=== PATIENT | female | born 2000 | race Caucasian/White ===

== ENCOUNTER → 2018-11-22 | Outpatient (CLI) | payer MEDICAID | LOC: LAB FS 15:20 | PROVIDERS: ATTEND Obstetrics & Gynecology | DX: Z34.01 Encounter for supervision of normal first pregnancy, first trimester (principal) ==

== ENCOUNTER 2019-01-02 09:39 | Emergency (ER) | payer MEDICAID ==
[~2019-01-02] VITALS: Ht 162.6 cm; Wt 83.0 kg
--- OUTSIDE RECORDS SUMMARY | 2019-01-02 10:24 | XMS REPORT ---
Author Author Migration, Doctor Organization [facility] Address Unknown Phone Unavailable Care Team Providers Care Lead Miner Blasting Name Role Phone Migration, Doctor Unavailable Unavailable PROBLEMS Type Condition ICD9-CM Code TFS43-QL Code Onset Dates Condition Status SNOMED Code Problem Bipolar disorder, mixed F31.60 Active 96245798 Problem Generalized anxiety disorder F41.1 Active 39966464 Problem Abnormal menses N92.6 Active 834004431 Problem Hypothyroidism, unspecified type E03.9 Active 86252509 ALLERGIES Substance Reaction Event Type Date Status Penicillins Unknown Non Drug Allergy Sep, Active Sulfa (sulfonamide Antibiotics) Unknown Non Drug Allergy Sep, Active ENCOUNTERS Encounter Location Date Diagnosis [address] [address] Nov, [address] [address] October, Encounter for supervision of other normal , first trimester Z34.81 and Acute vaginitis N76.[address] [address] October, [address] [address] October, Encounter for supervision of normal first in first trimester Z34.[address] [address] Sep, [address] [address] Sep, [facility] [place] [address] [facility] [id number] [address] Sep, [facility] [place] [address] [facility] [id number], [place] [address] Sep, [address] [address] Sep, [facility] [place] [id number] [place] [address] 08 Sep, 2018 Encounter for supervision of other normal , first trimester Z34.81 [place] [id number] [place] [address] 28 Aug, 2018 Bipolar disorder, mixed F31.60 and Generalized anxiety disorder F41.1 [facility] [id number] [place] [id number] 14 Jul, 2018 Caries K02.9 ; Oral health maintenance status requiring routine preventive dental care K08.9 ; Dental examination Z01.20 and Periodontitis K05.30 [place] [id number] [place] [address] 14 Jul, 2018 Hypothyroidism, unspecified type E03.9 [place] [id number] [place] [address] 06 Jul, 2018 Bipolar disorder, mixed F31.60 and Generalized anxiety disorder F41.1 [place] [id number] [place] [address] 06 Jul, 2018 Bipolar disorder, mixed F31.60 ; Generalized anxiety disorder F41.1 and Other detention (current) drug therapy Z79.899 [place] [address] [place] [address] 06 Jul, 2018 Hypothyroidism, unspecified type E03.9 [place] [id number] [place] [address] Jul, Hypothyroidism, unspecified type E03.9 [place] [id number] [place] [address] Jun, Hypothyroidism, unspecified type E03.9 [place] [id number] [place] [address] Jun, Bipolar disorder, mixed F31.60 and Generalized anxiety disorder F41.1 [place] [id number] [place] [address] Jun, Bipolar disorder, mixed F31.60 and Generalized anxiety disorder F41.1 [facility] [place] [id number] [place] [address] May, Bipolar disorder, mixed F31.60 and Generalized anxiety disorder F41.1 [facility] [place] [id number] [place] [address] May, Bipolar disorder, mixed F31.60 and Generalized anxiety disorder F41.1 [facility] [place] [id number] [place] [address] Apr, [facility] [place] [address] [address] Mar, Hepatitis C antibody test positive R76.8 [place] [id number] [place] [address] Mar, Hepatitis C antibody test positive R76.8 [facility] [place] [id number] [place] [address] Mar, Positive hepatitis C antibody test R76.8 [facility] [place] [id number] [place] [address] Mar, Positive hepatitis C antibody test R76.8 [facility] [place] [id number] [place] [address] Feb, [facility] [place] [id number] [place] [address] Feb, [facility] [place] [id number] [place] [address] Feb, [facility] [place] [id number] [place] [address] Feb, Screening for STD (sexually transmitted disease) Z11.3 and Well woman exam with routine gynecological exam Z01.419 [place] [id number] [place] [address] Nov, [place] [address] [address] Nov, Abnormal results of thyroid function studies R94.6 [facility] [place] [id number] [place] [address] October, Abnormal menses N92.6 and Hypothyroidism, unspecified type E03.9 [facility] [place] [address] [address] 14 Sep, 2014 [facility] [place] [id number] [place] [address] Sep, [facility] [place] [id number] [place] [address], [place] [address] Sep, [facility] [place] [address] [id number] [address] Sep, [facility] [place] [id number] [place] [address] Jun, [facility] [place] [address], [place] [address] Jun, [facility] [place] [address], [place] [address] Jun, [facility] [place] [address] [address] Jun, [facility] [place] [address], [place] [address] May, [facility] [place] [address], [place] [address] 18 May, 2013 [facility] [place] [id number] [address] May, [facility] [place] [address], [place] [address] May, [facility] [place] [id number], [place] [address] May, [facility] [place] [id number], [place] [address] May, [facility] [place] [address] [facility] [id number], [place] [address] Apr, [facility] [place] [address] [facility] [id number], [place] [address] Apr, [facility] [place] [address] [facility] [id number], [place] [address] Apr, [facility] [place] [address] [facility] [id number], [place] [address] Apr, [facility] [place] [address] [facility] [id number], [place] [address] Apr, [facility] [place] [address], [place] [address] Apr, [facility] [place] [address], [place] [address] Apr, [facility] [place] [id number], [place] [address] Apr, IMMUNIZATIONS No Known Immunizations SOCIAL HISTORY Never Assessed REASON FOR VISIT [facility] PLAN OF CARE VITAL SIGNS MEDICATIONS Medication Instructions Dosage Frequency Start Date End Date Duration Status ZyrTEC 10 mg take 1 tablet (10 mg) by oral route once daily May, Active amitriptyline 25 mg 1 tablet by Oral route 1 time per day May, Active Keflex 500 mg take 1 capsule (500 mg) by oral route every 12 hours for 7 days Apr, Active Depo-Provera 150 mg/mL inject 150 mg by intramuscular route every 3 months Jun, Active RESULTS No Results PROCEDURES No Known procedures INSTRUCTIONS MEDICATIONS ADMINISTERED No Known Medications MEDICAL (GENERAL) HISTORY Type Description Date Medical History hypothyroidism Surgical History cholecystectomy Surgical History EGD x2 Surgical History colonoscopy
--- OUTSIDE RECORDS SUMMARY | 2019-01-02 10:24 | XMS REPORT ---
Author Author Migration, Doctor Organization [facility] Address Unknown Phone Unavailable Care Team Providers Care Electric Refrigerator Preparer Name Role Phone Migration, Doctor Unavailable Unavailable PROBLEMS Type Condition ICD9-CM Code HTT81-CG Code Onset Dates Condition Status SNOMED Code Problem Bipolar disorder, mixed F31.60 Active 83487810 Problem Generalized anxiety disorder F41.1 Active 81956495 Problem Abnormal menses N92.6 Active 124069137 Problem Hypothyroidism, unspecified type E03.9 Active 61850968 ALLERGIES No Information ENCOUNTERS Encounter Location Date Diagnosis [facility] [id number], [place] [address] October, [facility] [address] [place] [address] October, [facility] [id number] [place] [address] October, [address] [address] Sep, [address] [address] Sep, [facility] [id number], [place] [address] Sep, [facility] [address] [place] [address] Sep, [address] [address] Sep, [facility] [id number] [place] [address] Sep, Encounter for supervision of other normal , first trimester Z34.81 [facility] [id number], [place] [address] Aug, Bipolar disorder, mixed F31.60 and Generalized anxiety disorder F41.1 [facility] [id number] [id number] 14 Jul, 2018 Caries K02.9 ; Oral health maintenance status requiring routine preventive dental care K08.9 ; Dental examination Z01.20 and Periodontitis K05.30 [place] [address] [place] [address] 14 Jul, 2018 Hypothyroidism, unspecified type E03.9 [place] [id number] [place] [address] 06 Jul, 2018 Bipolar disorder, mixed F31.60 and Generalized anxiety disorder F41.1 [place] [id number] [place] [address] 06 Jul, 2018 Bipolar disorder, mixed F31.60 ; Generalized anxiety disorder F41.1 and Other shelter (current) drug therapy Z79.899 [place] [id number] [place] [address] 06 Jul, 2018 Hypothyroidism, unspecified type E03.9 [place] [id number] [place] [address] Jul, Hypothyroidism, unspecified type E03.9 [place] [address] [place] [address] Jun, Hypothyroidism, unspecified type E03.9 [place] [address] [place] [address] Jun, Bipolar disorder, mixed F31.60 and Generalized anxiety disorder F41.1 [place] [address] [place] [address] Jun, Bipolar disorder, mixed F31.60 and Generalized anxiety disorder F41.1 [place] [address] [place] [address] May, Bipolar disorder, mixed F31.60 and Generalized anxiety disorder F41.1 [place] [id number] [place] [address] May, Bipolar disorder, mixed F31.60 and Generalized anxiety disorder F41.1 [facility] [id number] [place] [address] Apr, [facility] [id number] [place] [address] Mar, Hepatitis C antibody test positive R76.8 [place] [id number] [place] [address] Mar, Hepatitis C antibody test positive R76.8 [place] [id number] [place] [address] Mar, Positive hepatitis C antibody test R76.8 [place] [id number] [place] [address] Mar, Positive hepatitis C antibody test R76.8 [place] [address] [place] [address] Feb, [place] [id number] [place] [address] Feb, [place] [id number] [place] [address] Feb, [place] [address] [place] [address] Feb, Screening for STD (sexually transmitted disease) Z11.3 and Well woman exam with routine gynecological exam Z01.419 [place] [address] [place] [address] Nov, [place] [address] [place] [address] Nov, Abnormal results of thyroid function studies R94.6 [place] [id number] [place] [address] October, Abnormal menses N92.6 and Hypothyroidism, unspecified type E03.9 [facility] [address] [facility] [id number] [place] [address] 14 Sep, 2014 [facility] [address] [facility] [id number], [place] [address] 13 Sep, 2014 [facility] [address] [place] [id number] [place] [address] Sep, [facility] [address] [facility] [id number], [place] [address] Sep, [facility] [address] [facility] [id number] [place] [address] Jun, [facility] [address] [facility] [id number], [place] [address] Jun, [facility] [address], [place] [address] Jun, [facility] [address] [facility] [id number], [place] [address] Jun, [facility] [id number], [place] [address] May, [facility] [address] [facility] [id number], [place] [address] 18 May, 2013 [facility] [address], [place] [address] 17 May, 2013 [facility] [address] [facility] [id number], [place] [address] 17 May, 2013 [facility] [address] [facility] [id number], [place] [address] May, [facility] [address] [facility] [id number], [place] [address] May, [facility] [id number], [place] [address] Apr, [facility] [address] [facility] [id number], [place] [address] Apr, [facility] [address], [place] [address] Apr, [facility] [address], [place] [address] Apr, [facility] [id number], [place] [address] Apr, [facility] [id number], [place] [address] Apr, [facility] [id number], [place] [address] Apr, [facility] [id number], [place] [address] Apr, IMMUNIZATIONS No Known Immunizations SOCIAL HISTORY Never Assessed REASON FOR VISIT [facility] PLAN OF CARE VITAL SIGNS MEDICATIONS Unknown Medications RESULTS No Results PROCEDURES No Known procedures INSTRUCTIONS MEDICATIONS ADMINISTERED No Known Medications MEDICAL (GENERAL) HISTORY Type Description Date Medical History hypothyroidism Surgical History cholecystectomy Surgical History EGD x2 Surgical History colonoscopy
--- OUTSIDE RECORDS SUMMARY | 2019-01-02 10:24 | XMS REPORT ---
Author Author Migration, Doctor Organization [facility] Address Unknown Phone Unavailable Care Team Providers Care Laborer Heading Name Role Phone Migration, Doctor Unavailable Unavailable PROBLEMS Type Condition ICD9-CM Code [id number] Code Onset Dates Condition Status SNOMED Code Problem Bipolar disorder, mixed F31.60 Active 64596774 Problem Generalized anxiety disorder F41.1 Active 75039758 Problem Abnormal menses N92.6 Active 682766294 Problem Hypothyroidism, unspecified type E03.9 Active 76744164 ALLERGIES No Information ENCOUNTERS Encounter Location Date Diagnosis [address] [address] Nov, [facility] [id number], [place] [address] October, [address] [address] October, [address] [address] October, [address] [address] October, Encounter for supervision of normal first in first trimester Z34.[address] [address] Sep, [address] [address] Sep, [facility] [address] [facility] [id number], [place] [address] Sep, [facility] [address] [facility] [id number] [address] Sep, [address] [address] Sep, [facility] [address] [facility] [id number], [place] [address] Sep, Encounter for supervision of other normal , first trimester Z34.81 [facility] [address] [place] [address] Aug, Bipolar disorder, mixed F31.60 and Generalized anxiety disorder F41.[address] [facility] [address] [id number] 14 Jul, 2018 Caries K02.9 ; Oral health maintenance status requiring routine preventive dental care K08.9 ; Dental examination Z01.20 and Periodontitis K05.30 [facility] [id number] [place] [address] 14 Jul, 2018 Hypothyroidism, unspecified type E03.9 [id number] [place] [address] 06 Jul, 2018 Bipolar disorder, mixed F31.60 and Generalized anxiety disorder F41.1 [facility] [id number] [place] [address] 06 Jul, 2018 Bipolar disorder, mixed F31.60 ; Generalized anxiety disorder F41.1 and Other termite inspector (current) drug therapy Z79.899 [facility] [id number] [place] [address] 06 Jul, 2018 Hypothyroidism, unspecified type E03.9 [facility] [id number] [place] [address] 05 Jul, 2018 Hypothyroidism, unspecified type E03.9 [facility] [id number] [place] [address] Jun, Hypothyroidism, unspecified type E03.9 [facility] [id number] [place] [address] Jun, Bipolar disorder, mixed F31.60 and Generalized anxiety disorder F41.1 [facility] [id number] [place] [address] Jun, Bipolar disorder, mixed F31.60 and Generalized anxiety disorder F41.1 [facility] [address] [place] [address] May, Bipolar disorder, mixed F31.60 and Generalized anxiety disorder F41.1 [facility] [id number] [place] [address] May, Bipolar disorder, mixed F31.60 and Generalized anxiety disorder F41.1 [facility] [id number] [place] [address] Apr, [facility] [id number] [place] [address] Mar, Hepatitis C antibody test positive R76.8 [facility] [id number] [place] [address] Mar, Hepatitis C antibody test positive R76.8 [facility] [id number] [place] [address] Mar, Positive hepatitis C antibody test R76.8 [facility] [id number] [place] [address] Mar, Positive hepatitis C antibody test R76.8 [facility] [address] [place] [address] Feb, [facility] [address], [place] [address] Feb, [facility] [id number] [place] [address] Feb, [facility] [address] [place] [address] Feb, Screening for STD (sexually transmitted disease) Z11.3 and Well woman exam with routine gynecological exam Z01.419 [facility] [address], [place] [address] Nov, [facility] [id number] [place] [address] Nov, Abnormal results of thyroid function studies R94.6 [facility] [address], [place] [address] October, Abnormal menses N92.6 and Hypothyroidism, unspecified type E03.9 [facility] [address], [place] [address] 14 Sep, 2014 [facility] [id number] [place] [address] Sep, [facility] [address], [place] [address] Sep, [facility] [id number] [place] [address] Sep, [facility] [id number] [place] [address] Jun, [facility] [id number] [place] [address] Jun, [facility] [address], [place] [address] Jun, [facility] [address], [place] [address] Jun, [facility] [address], [place] [address] May, [facility] [address], [place] [address] 18 May, 2013 [facility] [address], [place] [address] May, [facility] [id number], [place] [address] May, [facility] [address], [place] [address] May, [facility] [id number], [place] [address] May, [facility] [address], [place] [address] Apr, [facility] [address], [place] [address] Apr, [facility] [address], [place] [address] Apr, [facility] [address] [place] [address] Apr, [facility] [address] [place] [address] Apr, [facility] [address], [place] [address] Apr, [facility] [address], [place] [address] Apr, [facility] [address], [place] [address] Apr, IMMUNIZATIONS No Known Immunizations SOCIAL HISTORY Never Assessed REASON FOR VISIT EMR-[facility] PLAN OF CARE VITAL SIGNS MEDICATIONS Unknown Medications RESULTS No Results PROCEDURES No Known procedures INSTRUCTIONS MEDICATIONS ADMINISTERED No Known Medications MEDICAL (GENERAL) HISTORY Type Description Date Medical History hypothyroidism Surgical History cholecystectomy Surgical History EGD x2 Surgical History colonoscopy
--- OUTSIDE RECORDS SUMMARY | 2019-01-02 10:24 | XMS REPORT ---
Author Author JAVIER ECHOLS Organization [facility] Address [address] [place] [address] Care Team Providers Care Narcotics And/Or Vice Detective Name Role Phone ECHOLS, JAVIER Unavailable PROBLEMS Type Condition ICD9-CM Code WID95-WY Code Onset Dates Condition Status SNOMED Code Problem Generalized anxiety disorder F41.1 Active 73768610 Problem Bipolar disorder, mixed F31.60 Active 81916584 Problem Hypothyroidism, unspecified type E03.9 Active 97746563 Problem Abnormal menses N92.6 Active 981872461 ALLERGIES No Information ENCOUNTERS Encounter Location Date Diagnosis [facility] [id number] [place] [address] Jun, [facility] [id number] [place] [address] May, [facility] [id number] [place] [address] May, Bipolar disorder, mixed F31.60 and Generalized anxiety disorder F41.1 [facility] [id number] [place] [address] Apr, [facility] [id number] [place] [address] Mar, Hepatitis C antibody test positive R76.8 [facility] [id number] [place] [address] Mar, Hepatitis C antibody test positive R76.8 [facility] [id number] [place] [address] Mar, Positive hepatitis C antibody test R76.8 [facility] [id number] [place] [address] Mar, Positive hepatitis C antibody test R76.8 [facility] [id number] [place] [address] Feb, [facility] [id number] [place] [address] Feb, [facility] [id number] [place] [address] Feb, [facility] [id number] [place] [address] Feb, Screening for STD (sexually transmitted disease) Z11.3 and Well woman exam with routine gynecological exam Z01.419 [facility] [id number] [place] [address] Nov, [facility] [id number] [place] [address] Nov, Abnormal results of thyroid function studies R94.6 [facility] [id number] [place] [address] October, Abnormal menses N92.6 and Hypothyroidism, unspecified type E03.9 [facility] [id number] [place] [address] Sep, [facility] [id number] [place] [address] Sep, [facility] [id number] [place] [address] Sep, [facility] [id number] [place] [address] Sep, [facility] [id number] [place] [address] Jun, [facility] [id number] [place] [address] Jun, [facility] [id number] [place] [address] Jun, [facility] [address] [facility] [id number], [place] [address] Jun, [facility] [address] [facility] [id number], [place] [address] May, [facility] [address] [facility] [id number], [place] [address] May, [facility] [address] [facility] [id number], [place] [address] May, [facility] [address] [facility] [id number], [place] [address] May, [facility] [address] [facility] [id number], [place] [address] May, [facility] [id number], [place] [address] May, [facility] [address] [facility] [id number], [place] [address] Apr, [facility] [id number], [place] [address] Apr, [facility] [id number], [place] [address] Apr, [facility] [id number], [place] [address] Apr, [facility] [address] [facility] [id number], [place] [address] Apr, [facility] [address] [facility] [id number], [place] [address] Apr, [facility] [address] [facility] [id number], [place] [address] Apr, [facility] [address] [id number], [place] [address] Apr, IMMUNIZATIONS No Known Immunizations SOCIAL HISTORY Never Assessed REASON FOR VISIT BH Intake PLAN OF CARE Activity Details Follow Up 3 Weeks Reason: VITAL SIGNS MEDICATIONS Medication Instructions Dosage Frequency Start Date End Date Duration Status Flagyl 500 mg Orally Once a day 4 tablet 24h Feb, 1 dose Unknown Seroquel 25 MG Orally Once a day 1 tablet 24h 30 day(s) Not-Taking Abilify 10 MG Orally Once a day 1 tablet 24h 30 day(s) Not-Taking Allenspark 8 MEQ/5ML Orally Once a day 5 ml at bedtime 24h 30 day(s) Not-Taking RESULTS No Results PROCEDURES Procedure Date Ordered Result Body Site Psych diagnostic evaluation, established patient Jun 02, 2018 INSTRUCTIONS MEDICATIONS ADMINISTERED No Known Medications MEDICAL (GENERAL) HISTORY Type Description Date Medical History hypothyroidism Surgical History cholecystectomy Surgical History EGD x2 Surgical History colonoscopy
--- OUTSIDE RECORDS SUMMARY | 2019-01-02 10:24 | XMS REPORT ---
Author Author Migration, Doctor Organization [facility] Address Unknown Phone Unavailable Care Team Providers Care Gamma Facilities Operator Name Role Phone Migration, Doctor Unavailable Unavailable PROBLEMS Type Condition ICD9-CM Code QGG34-CB Code Onset Dates Condition Status SNOMED Code Problem Bipolar disorder, mixed F31.60 Active 61767067 Problem Generalized anxiety disorder F41.1 Active 11832446 Problem Abnormal menses N92.6 Active 014159592 Problem Hypothyroidism, unspecified type E03.9 Active 71187059 ALLERGIES No Information ENCOUNTERS Encounter Location Date Diagnosis [facility] [address] [address] October, [facility] [address] [place] [address] October, [facility] [id number] [place] [address] October, [address] [address] Sep, [address] [address] Sep, [facility] [address] [address] Sep, [facility] [address] [place] [address] Sep, [address] [address] Sep, [facility] [id number] [place] [address] Sep, Encounter for supervision of other normal , first trimester Z34.81 [facility] [address] [address] Aug, Bipolar disorder, mixed F31.60 and Generalized anxiety disorder F41.1 [facility] [id number] [id number] 14 Jul, 2018 Caries K02.9 ; Oral health maintenance status requiring routine preventive dental care K08.9 ; Dental examination Z01.20 and Periodontitis K05.30 [address] [address] [place] [address] 14 Jul, 2018 Hypothyroidism, unspecified type E03.9 [place] [id number] [place] [address] 06 Jul, 2018 Bipolar disorder, mixed F31.60 and Generalized anxiety disorder F41.1 [place] [id number] [place] [address] 06 Jul, 2018 Bipolar disorder, mixed F31.60 ; Generalized anxiety disorder F41.1 and Other shelter (current) drug therapy Z79.899 [place] [id number] [place] [address] 06 Jul, 2018 Hypothyroidism, unspecified type E03.9 [place] [id number] [place] [address] Jul, Hypothyroidism, unspecified type E03.9 [place] [address] [place] [address] Jun, Hypothyroidism, unspecified type E03.9 [place] [address] [place] [address] Jun, Bipolar disorder, mixed F31.60 and Generalized anxiety disorder F41.1 [place] [address] [place] [address] Jun, Bipolar disorder, mixed F31.60 and Generalized anxiety disorder F41.1 [place] [address] [place] [address] May, Bipolar disorder, mixed F31.60 and Generalized anxiety disorder F41.1 [place] [id number] [place] [address] May, Bipolar disorder, mixed F31.60 and Generalized anxiety disorder F41.1 [facility] [id number] [place] [address] Apr, [facility] [id number] [place] [address] Mar, Hepatitis C antibody test positive R76.8 [place] [id number] [place] [address] Mar, Hepatitis C antibody test positive R76.8 [place] [id number] [place] [address] Mar, Positive hepatitis C antibody test R76.8 [place] [id number] [place] [address] Mar, Positive hepatitis C antibody test R76.8 [place] [id number] [place] [address] Feb, [place] [id number] [place] [address] Feb, [place] [id number] [place] [address] Feb, [place] [id number] [place] [address] Feb, Screening for STD (sexually transmitted disease) Z11.3 and Well woman exam with routine gynecological exam Z01.419 [place] [id number] [place] [address] Nov, [place] [id number] [place] [address] Nov, Abnormal results of thyroid function studies R94.6 [place] [id number] [place] [address] October, Abnormal menses N92.6 and Hypothyroidism, unspecified type E03.9 [facility] [address] [facility] [id number] [place] [address] 14 Sep, 2014 [facility] [address] [facility] [id number] [place] [address] 13 Sep, 2014 [facility] [id number] [place] [address] Sep, [facility] [address] [facility] [id number] [place] [address] Sep, [facility] [address] [facility] [id number] [place] [address] Jun, [facility] [address] [facility] [id number] [place] [address] Jun, [facility] [address] [address] Jun, [facility] [address] [facility] [id number] [place] [address] Jun, [facility] [address] [id number] [address] May, [facility] [address] [facility] [id number] [place] [address] 18 May, 2013 [facility] [address] [address] 17 May, 2013 [facility] [address] [facility] [id number] [place] [address] 17 May, 2013 [facility] [address] [facility] [id number] [place] [address] May, [facility] [address] [facility] [id number] [place] [address] May, [facility] [address] [id number] [address] Apr, [facility] [address] [facility] [id number] [place] [address] Apr, [facility] [id number] [address] Apr, [facility] [id number] [address] Apr, [facility] [address] [id number] [address] Apr, [facility] [address] [id number] [address] Apr, [facility] [address] [id number] [address] Apr, [facility] [address] [id number] [address] Apr, IMMUNIZATIONS No Known Immunizations SOCIAL HISTORY Never Assessed REASON FOR VISIT EMR-[facility] [place], [place] PLAN OF CARE VITAL SIGNS MEDICATIONS Unknown Medications RESULTS No Results PROCEDURES No Known procedures INSTRUCTIONS MEDICATIONS ADMINISTERED No Known Medications MEDICAL (GENERAL) HISTORY Type Description Date Medical History hypothyroidism Surgical History cholecystectomy Surgical History EGD x2 Surgical History colonoscopy
--- OUTSIDE RECORDS SUMMARY | 2019-01-02 10:25 | XMS REPORT ---
Author Author NORA BRIDGES [facility] Address [address] [place] [address] Care Team Providers Care Collections Clerk Name Role Phone NORA BRIDGES Unavailable PROBLEMS Type Condition ICD9-CM Code BJP05-ZV Code Onset Dates Condition Status SNOMED Code Problem Abnormal thyroid blood test R94.6 Active 978129534 Problem Abnormal menses N92.6 Active 749371145 Problem Hypothyroidism, unspecified type E03.9 Active 30990763 Problem Surveillance of previously prescribed implantable subdermal contraceptive V25.43 Active 529486323 Problem Unspecified contraceptive management V25.9 Active 532743699 Problem Unspecified episodic mood disorder 296.90 Active 167496535 Problem Depressive disorder, not elsewhere classified 311 Active 74242177 ALLERGIES No Information ENCOUNTERS Encounter Location Date Diagnosis [facility] [id number] [place] [address] Nov, [facility] [id number] [place] [address] Nov, Abnormal results of thyroid function studies R94.6 [facility] [id number] [place] [address] October, Abnormal menses N92.6 and Hypothyroidism, unspecified type E03.9 [facility] [id number] [place] [address] Sep, [facility] [id number] [place] [address] Sep, [facility] [id number] [place] [address] Sep, [facility] [id number] [place] [address] Sep, [facility] [address] [id number] [place] [address] Jun, [facility] [address] [id number] [place] [address] Jun, [facility] [address] [id number] [place] [address] Jun, [facility] [address] [id number] [place] [address] Jun, [facility] [address] [id number] [place] [address] May, [facility] [address] [id number] [place] [address] May, [facility] [address] [id number] [place] [address] May, [facility] [address] [id number] [place] [address] May, [facility] [address] [id number] [place] [address] May, [facility] [address] [id number] [place] [address] May, [facility] [address] [id number] [place] [address] Apr, [facility] [address] [id number] [place] [address] Apr, [facility] [place] [facility] [address] [id number] [place] [address] Apr, [facility] [place] [facility] [address] [id number] [place] [address] Apr, [facility] [place] [facility] [address] [id number] [place] [address] Apr, [facility] [place] [facility] [address] [id number] [place] [address] Apr, [facility] [address] [facility] [id number] [place] [address] Apr, [facility] [address] [facility] [id number] [place] [address] Apr, IMMUNIZATIONS No Known Immunizations SOCIAL HISTORY Never Assessed REASON FOR VISIT new orders PLAN OF CARE VITAL SIGNS MEDICATIONS Unknown Medications RESULTS No Results PROCEDURES No Known procedures INSTRUCTIONS MEDICATIONS ADMINISTERED No Known Medications MEDICAL (GENERAL) HISTORY Type Description Date Medical History hypothyroidism
--- OUTSIDE RECORDS SUMMARY | 2019-01-02 10:25 | XMS REPORT ---
Author Author KING DELMIS [facility] Address [address] [place] [address] Care Team Providers Care Baseball Glove Stuffer Name Role Phone DELMIS RUIZ Unavailable PROBLEMS Type Condition ICD9-CM Code SLU25-OV Code Onset Dates Condition Status SNOMED Code Problem Abnormal menses N92.6 Active 520841042 Problem Hypothyroidism, unspecified type E03.9 Active 68775692 ALLERGIES No Information ENCOUNTERS Encounter Location Date Diagnosis [place] [id number] [place] [address] Mar, Hepatitis C antibody test positive R76.8 [place] [id number] [place] [address] Mar, Hepatitis C antibody test positive R76.8 [facility] [id number] [place] [address] Mar, Positive hepatitis C antibody test R76.8 [place] [id number] [place] [address] Mar, Positive hepatitis C antibody test R76.8 [place] [id number] [place] [address] Feb, [facility] [id number] [place] [address] Feb, [place] [id number] [place] [address] Feb, [place] [id number] [place] [address] Feb, Screening for STD (sexually transmitted disease) Z11.3 and Well woman exam with routine gynecological exam Z01.419 [facility] [address] [address] Nov, [facility] [address], [place] [address] Nov, Abnormal results of thyroid function studies R94.6 [facility] [address] [address] October, Abnormal menses N92.6 and Hypothyroidism, unspecified type E03.9 [facility] [address], [place] [address] 14 Sep, 2014 [facility] [id number] [place] [address] Sep, [facility] [address], [place] [address] Sep, [facility] [address], [place] [address] Sep, [facility] [address], [place] [address] Jun, [facility] [address], [place] [address] Jun, [facility] [address], [place] [address] Jun, [facility] [address], [place] [address] Jun, [facility] [address], [place] [address] May, [facility] [address], [place] [address] May, [facility] [address], [place] [address] May, [facility] [address], [place] [address] May, [facility] [address], [place] [address] May, [facility] [address], [place] [address] May, [facility] [address], [place] [address] Apr, [facility] [address], [place] [address] Apr, [facility] [address], [place] [address] Apr, [facility] [id number] [place] [address] Apr, [facility] [address], [place] [address] Apr, [facility] [address], [place] [address] Apr, [facility] [address], [place] [address] Apr, [facility] [address], [place] [address] Apr, IMMUNIZATIONS No Known Immunizations SOCIAL HISTORY Never Assessed REASON FOR VISIT Lab PLAN OF CARE Activity Details Pending Test HEP C ANTIBODY (STATE) VITAL SIGNS MEDICATIONS Unknown Medications RESULTS No Results PROCEDURES Procedure Date Ordered Result Body Site No Charge Apr 03, 2018 HEPATITIS C, RNA, QUANT Apr 03, 2018 VENIPUNCT, ROUTINE* Apr 03, 2018 INSTRUCTIONS MEDICATIONS ADMINISTERED No Known Medications MEDICAL (GENERAL) HISTORY Type Description Date Medical History hypothyroidism Surgical History cholecystectomy Surgical History EGD x2 Surgical History colonoscopy
--- OUTSIDE RECORDS SUMMARY | 2019-01-02 10:25 | XMS REPORT ---
Author Author KING DELMIS [facility] Address [address] [place] [address] Care Team Providers Care Ballet Master/Mistress Name Role Phone DELMIS RUIZ Unavailable PROBLEMS Type Condition ICD9-CM Code IHC43-CW Code Onset Dates Condition Status SNOMED Code Problem Abnormal menses N92.6 Active 078778094 Problem Hypothyroidism, unspecified type E03.9 Active 74239053 ALLERGIES No Information ENCOUNTERS Encounter Location Date Diagnosis [place] [id number] [place] [address] Mar, Hepatitis C antibody test positive R76.8 [place] [id number] [place] [address] Mar, Hepatitis C antibody test positive R76.8 [facility] [id number] [place] [address] Mar, Positive hepatitis C antibody test R76.8 [place] [id number] [place] [address] Mar, Positive hepatitis C antibody test R76.8 [place] [id number] [place] [address] Feb, [facility] [id number] [place] [address] Feb, [place] [id number] [place] [address] Feb, [place] [id number] [place] [address] Feb, Screening for STD (sexually transmitted disease) Z11.3 and Well woman exam with routine gynecological exam Z01.419 [facility] [address], [place] [address] Nov, [facility] [address], [place] [address] Nov, Abnormal results of thyroid function studies R94.6 [facility] [address] [address] October, Abnormal menses N92.6 and Hypothyroidism, unspecified type E03.9 [facility] [address], [place] [address] 14 Sep, 2014 [facility] [address] [place] [address] Sep, [facility] [address], [place] [address] Sep, [facility] [address], [place] [address] Sep, [facility] [address], [place] [address] Jun, [facility] [address], [place] [address] Jun, [facility] [address], [place] [address] Jun, [facility] [address], [place] [address] Jun, [facility] [address], [place] [address] May, [facility] [address], [place] [address] May, [facility] [address], [place] [address] May, [facility] [address], [place] [address] May, [facility] [address], [place] [address] May, [facility] [address], [place] [address] May, [facility] [address], [place] [address] Apr, [facility] [address], [place] [address] Apr, [facility] [address], [place] [address] Apr, [facility] [address] [place] [address] Apr, [facility] [address], [place] [address] Apr, [facility] [address], [place] [address] Apr, [facility] [address], [place] [address] Apr, [facility] [address], [place] [address] Apr, IMMUNIZATIONS No Known Immunizations SOCIAL HISTORY Never Assessed REASON FOR VISIT Conflicting lab results PLAN OF CARE VITAL SIGNS MEDICATIONS Unknown Medications RESULTS No Results PROCEDURES No Known procedures INSTRUCTIONS MEDICATIONS ADMINISTERED No Known Medications MEDICAL (GENERAL) HISTORY Type Description Date Medical History hypothyroidism Surgical History cholecystectomy Surgical History EGD x2 Surgical History colonoscopy
--- OUTSIDE RECORDS SUMMARY | 2019-01-02 10:25 | XMS REPORT ---
Author Author DILIP REYNA [facility] Address [address] [place] [address] Care Team Providers Care Steak Sauce Maker Name Role Phone DILIP REYNA Unavailable PROBLEMS Type Condition ICD9-CM Code WXB68-PH Code Onset Dates Condition Status SNOMED Code Problem Abnormal menses N92.6 Active 262814445 Problem Hypothyroidism, unspecified type E03.9 Active 93688048 ALLERGIES No Information ENCOUNTERS Encounter Location Date Diagnosis [facility] [id number] [place] [address] Mar, [place] [address] [address] Mar, Positive hepatitis C antibody test R76.8 [facility] [id number] [place] [address] Mar, Positive hepatitis C antibody test R76.8 [place] [id number] [place] [address] Feb, [facility] [id number] [place] [address] Feb, [facility] [id number] [place] [address] Feb, [facility] [id number] [place] [address] Feb, Screening for STD (sexually transmitted disease) Z11.3 and Well woman exam with routine gynecological exam Z01.419 [address] [id number] [place] [address] Nov, [facility] [id number] [place] [address] Nov, Abnormal results of thyroid function studies R94.6 [facility] [id number] [place] [address] October, Abnormal menses N92.6 and Hypothyroidism, unspecified type E03.9 [facility] [id number] [place] [address] 14 Sep, 2014 [facility] [id number] [place] [address] Sep, [facility] [id number] [place] [address] Sep, [facility] [id number] [place] [address] Sep, [facility] [id number] [place] [address] Jun, [facility] [id number] [place] [address] Jun, [facility] [id number] [place] [address] Jun, [facility] [id number] [place] [address] Jun, [facility] [address], [place] [address] May, [facility] [address], [place] [address] 18 May, 2013 [facility] [address], [place] [address] 17 May, 2013 [facility] [id number] [place] [address] May, [facility] [address], [place] [address] May, [facility] [address], [place] [address] May, [facility] [address], [place] [address] Apr, [facility] [address], [place] [address] Apr, [facility] [address], [place] [address] Apr, [facility] [address], [place] [address] Apr, [facility] [address], [place] [address] Apr, [facility] [address], [place] [address] Apr, [facility] [address], [place] [address] Apr, [facility] [id number], [place] [address] Apr, IMMUNIZATIONS No Known Immunizations SOCIAL HISTORY Never Assessed REASON FOR VISIT med order PLAN OF CARE VITAL SIGNS MEDICATIONS Medication Instructions Dosage Frequency Start Date End Date Duration Status Diflucan 150 MG Orally one time 1 tablet Feb, Feb, 1 dose Active RESULTS No Results PROCEDURES No Known procedures INSTRUCTIONS MEDICATIONS ADMINISTERED No Known Medications MEDICAL (GENERAL) HISTORY Type Description Date Medical History hypothyroidism Surgical History cholecystectomy Surgical History EGD x2 Surgical History colonoscopy
--- OUTSIDE RECORDS SUMMARY | 2019-01-02 10:25 | XMS REPORT ---
Author Author DELMIS RUIZ [facility] Address [address] [place] [address] Care Team Providers Care Network Specialist Name Role Phone WILLIAM RUIZTA Unavailable PROBLEMS Type Condition ICD9-CM Code GPZ67-BE Code Onset Dates Condition Status SNOMED Code Problem Abnormal menses N92.6 Active 693689497 Problem Hypothyroidism, unspecified type E03.9 Active 32837185 ALLERGIES Substance Reaction Event Type Date Status Penicillins Unknown Non Drug Allergy Feb, Active Sulfa (sulfonamide Antibiotics) Unknown Non Drug Allergy Feb, Active ENCOUNTERS Encounter Location Date Diagnosis [place] [id number] [place] [address] Mar, [facility] [id number] [place] [address] Mar, Positive hepatitis C antibody test R76.8 [facility] [id number] [place] [address] Mar, Positive hepatitis C antibody test R76.8 [facility] [id number] [place] [address] Feb, [facility] [id number] [place] [address] Feb, [facility] [id number] [place] [address] Feb, [facility] [id number] [place] [address] Feb, Screening for STD (sexually transmitted disease) Z11.3 and Well woman exam with routine gynecological exam Z01.419 [place] [id number] [place] [address] Nov, [facility] [address], [place] [address] Nov, Abnormal results of thyroid function studies R94.6 [facility] [address], [place] [address] October, Abnormal menses N92.6 and Hypothyroidism, unspecified type E03.9 [facility] [id number] [place] [address] 14 Sep, 2014 [facility] [id number] [place] [address] Sep, [facility] [id number] [place] [address] Sep, [facility] [id number] [place] [address] Sep, [facility] [id number] [place] [address] Jun, [facility] [address], [place] [address] Jun, [facility] [address] [place] [address] Jun, [facility] [address], [place] [address] Jun, [facility] [address], [place] [address] May, [facility] [address], [place] [address] May, [facility] [id number] [place] [address] May, [facility] [address], [place] [address] May, [facility] [address] [place] [address] May, [facility] [address] [facility] [id number] [address] May, [facility] [address] [facility] [id number], [place] [address] Apr, [facility] [address] [facility] [id number], [place] [address] Apr, [facility] [address] [facility] [id number], [place] [address] Apr, [facility] [address] [facility] [id number], [place] [address] Apr, [facility] [address] [facility] [id number], [place] [address] Apr, [facility] [address] [id number], [place] [address] Apr, [facility] [address] [facility] [id number], [place] [address] Apr, [facility] [address] [facility] [id number], [place] [address] Apr, IMMUNIZATIONS No Known Immunizations SOCIAL HISTORY Never Assessed REASON FOR VISIT Well Woman Exam. TATY James PLAN OF CARE Activity Details Follow Up 1 Year or as indicated by labs Reason: VITAL SIGNS Height 66 in 2018-03-14 Weight 195.9 lbs 2018-03-14 Temperature 97.8 degrees Fahrenheit 2018-03-14 Heart Rate 87 bpm 2018-03-14 Respiratory Rate 2018-03-14 BMI 31.62 kg/m2 2018-03-14 Blood pressure systolic 128 mmHg 2018-03-14 Blood pressure diastolic 88 mmHg 2018-03-14 MEDICATIONS Unknown Medications RESULTS No Results PROCEDURES Procedure Date Ordered Result Body Site TRICHOMONAS ASSAY W/OPTIC Mar 14, 2018 Bacterial Vaginosis In House Mar 14, 2018 No Charge Mar 14, 2018 CULTURE, BACTERIA, OTHER Mar 14, 2018 INSTRUCTIONS MEDICATIONS ADMINISTERED No Known Medications MEDICAL (GENERAL) HISTORY Type Description Date Medical History hypothyroidism Surgical History cholecystectomy Surgical History EGD x2 Surgical History colonoscopy
--- OUTSIDE RECORDS SUMMARY | 2019-01-02 10:25 | XMS REPORT ---
Author Author KING DELMIS [facility] Address [address] [place] [address] Care Team Providers Care Home Service Consultant Name Role Phone DELMIS RUIZ Unavailable PROBLEMS Type Condition ICD9-CM Code VSG49-IO Code Onset Dates Condition Status SNOMED Code Problem Abnormal menses N92.6 Active 273630070 Problem Hypothyroidism, unspecified type E03.9 Active 62482096 ALLERGIES No Information ENCOUNTERS Encounter Location Date Diagnosis [place] [id number] [place] [address] Mar, Hepatitis C antibody test positive R76.8 [place] [id number] [place] [address] Mar, Hepatitis C antibody test positive R76.8 [facility] [id number] [place] [address] Mar, Positive hepatitis C antibody test R76.8 [place] [id number] [place] [address] Mar, Positive hepatitis C antibody test R76.8 [place] [id number] [place] [address] Feb, [facility] [id number] [place] [address] Feb, [place] [id number] [place] [address] Feb, [place] [id number] [place] [address] Feb, Screening for STD (sexually transmitted disease) Z11.3 and Well woman exam with routine gynecological exam Z01.419 [facility] [address] [address] Nov, [facility] [address], [place] [address] Nov, Abnormal results of thyroid function studies R94.6 [facility] [address] [place] [address] October, Abnormal menses N92.6 and Hypothyroidism, unspecified type E03.9 [facility] [address], [place] [address] 14 Sep, 2014 [facility] [id number] [place] [address] Sep, [facility] [address], [place] [address] Sep, [facility] [address], [place] [address] Sep, [facility] [address], [place] [address] Jun, [facility] [address], [place] [address] Jun, [facility] [address], [place] [address] Jun, [facility] [address], [place] [address] Jun, [facility] [id number], [place] [address] May, [facility] [address], [place] [address] May, [facility] [address], [place] [address] May, [facility] [address], [place] [address] May, [facility] [address], [place] [address] May, [facility] [address], [place] [address] May, [facility] [address], [place] [address] Apr, [facility] [address], [place] [address] Apr, [facility] [address], [place] [address] Apr, [facility] [id number] [place] [address] Apr, [facility] [address], [place] [address] Apr, [facility] [address], [place] [address] Apr, [facility] [address], [place] [address] Apr, [facility] [address], [place] [address] Apr, IMMUNIZATIONS No Known Immunizations SOCIAL HISTORY Never Assessed REASON FOR VISIT Lab (walk-in) PLAN OF CARE VITAL SIGNS MEDICATIONS Unknown Medications RESULTS No Results PROCEDURES Procedure Date Ordered Result Body Site ACUTE HEPATITIS PANEL Mar 30, 2018 COMPREHEN METABOLIC PANEL Mar 30, 2018 DRUG TEST PRSMV DIR OPT OBS Mar 30, 2018 PROTHROMBIN TIME Mar 30, 2018 INSTRUCTIONS MEDICATIONS ADMINISTERED No Known Medications MEDICAL (GENERAL) HISTORY Type Description Date Medical History hypothyroidism Surgical History cholecystectomy Surgical History EGD x2 Surgical History colonoscopy
--- OUTSIDE RECORDS SUMMARY | 2019-01-02 10:25 | XMS REPORT ---
Author Author DELMIS RUIZ [facility] Address [address] [place] [address] Care Team Providers Care Water Filtration Technician Name Role Phone WILLIAM RUIZTA Unavailable PROBLEMS Type Condition ICD9-CM Code JOM88-NQ Code Onset Dates Condition Status SNOMED Code Problem Abnormal menses N92.6 Active 050420802 Problem Hypothyroidism, unspecified type E03.9 Active 06872652 ALLERGIES No Information ENCOUNTERS Encounter Location Date Diagnosis [place] [id number] [place] [address] Mar, [place] [id number] [place] [address] Mar, Positive hepatitis C antibody test R76.8 [facility] [id number] [place] [address] Mar, Positive hepatitis C antibody test R76.8 [facility] [id number] [place] [address] Feb, [facility] [id number] [place] [address] Feb, [facility] [id number] [place] [address] Feb, [facility] [id number] [place] [address] Feb, Screening for STD (sexually transmitted disease) Z11.3 and Well woman exam with routine gynecological exam Z01.419 [place] [id number] [place] [address] Nov, [place] [id number] [place] [address] Nov, Abnormal results of thyroid function studies R94.6 [facility] [address], [place] [address] October, Abnormal menses N92.6 and Hypothyroidism, unspecified type E03.9 [facility] [address], [place] [address] 14 Sep, 2014 [facility] [id number] [place] [address] Sep, [facility] [id number] [place] [address] Sep, [facility] [id number] [place] [address] Sep, [facility] [id number] [place] [address] Jun, [facility] [id number] [place] [address] Jun, [facility] [address], [place] [address] Jun, [facility] [id number] [place] [address] Jun, [facility] [address], [place] [address] May, [facility] [address], [place] [address] 18 May, 2013 [facility] [address], [place] [address] May, [facility] [id number], [place] [address] May, [facility] [address], [place] [address] May, [facility] [id number] [place] [address] May, [facility] [address], [place] [address] Apr, [facility] [address], [place] [address] Apr, [facility] [address], [place] [address] Apr, [facility] [id number] [place] [address] Apr, [facility] [address], [place] [address] Apr, [facility] [address], [place] [address] Apr, [facility] [address], [place] [address] Apr, [facility] [address], [place] [address] Apr, IMMUNIZATIONS No Known Immunizations SOCIAL HISTORY Never Assessed REASON FOR VISIT FYI PLAN OF CARE VITAL SIGNS MEDICATIONS Unknown Medications RESULTS No Results PROCEDURES No Known procedures INSTRUCTIONS MEDICATIONS ADMINISTERED No Known Medications MEDICAL (GENERAL) HISTORY Type Description Date Medical History hypothyroidism Surgical History cholecystectomy Surgical History EGD x2 Surgical History colonoscopy
--- OUTSIDE RECORDS SUMMARY | 2019-01-02 10:25 | XMS REPORT ---
Author Author KING DELMIS [facility] Address [address] [place] [address] Care Team Providers Care Creel Clerk Name Role Phone DELMIS RUIZ Unavailable PROBLEMS Type Condition ICD9-CM Code [id number] Code Onset Dates Condition Status SNOMED Code Problem Abnormal menses N92.6 Active 225179752 Problem Hypothyroidism, unspecified type E03.9 Active 69597814 ALLERGIES No Information ENCOUNTERS Encounter Location Date Diagnosis [place] [id number] [place] [address] Mar, Positive hepatitis C antibody test R76.8 [place] [id number] [place] [address] Feb, [place] [id number] [place] [address] Feb, [place] [address] [address] Feb, [place] [id number] [place] [address] Feb, Screening for STD (sexually transmitted disease) Z11.3 and Well woman exam with routine gynecological exam Z01.419 [place] [address] [id number] [place] [address] Nov, [place] [address] [address] Nov, Abnormal results of thyroid function studies R94.6 [place] [id number] [place] [address] October, Abnormal menses N92.6 and Hypothyroidism, unspecified type E03.9 [place] [address] [place] [address] 14 Sep, 2014 [facility] [address] [id number] [place] [address] 13 Sep, 2014 [facility] [address] [id number] [place] [address] 03 Sep, 2013 [facility] [address] [id number] [place] [address] Sep, [facility] [address] [id number] [place] [address] Jun, [facility] [address] [id number] [place] [address] Jun, [facility] [address] [id number] [place] [address] Jun, [facility] [address] [id number] [place] [address] Jun, [facility] [address] [id number] [place] [address] May, [facility] [address] [id number] [place] [address] 18 May, 2013 [facility] [address] [id number] [place] [address] 17 May, 2013 [facility] [address] [id number] [place] [address] 17 May, 2013 [facility] [address] [id number] [place] [address] May, [facility] [address] [id number] [place] [address] May, [facility] [address] [id number] [place] [address] Apr, [facility] [address] [id number] [place] [address] Apr, [facility] [address] [facility] [id number] [address] Apr, [facility] [id number] [address] Apr, [facility] [id number], [place] [address] Apr, [facility] [address], [place] [address] Apr, [facility] [address] [facility] [id number] [address] Apr, [facility] [id number] [address] Apr, IMMUNIZATIONS No Known Immunizations SOCIAL HISTORY Never Assessed REASON FOR VISIT med order PLAN OF CARE VITAL SIGNS MEDICATIONS Medication Instructions Dosage Frequency Start Date End Date Duration Status Flagyl 500 mg Orally Once a day 4 tablet 24h Feb, 1 dose Active RESULTS No Results PROCEDURES No Known procedures INSTRUCTIONS MEDICATIONS ADMINISTERED No Known Medications MEDICAL (GENERAL) HISTORY Type Description Date Medical History hypothyroidism Surgical History cholecystectomy Surgical History EGD x2 Surgical History colonoscopy
--- OUTSIDE RECORDS SUMMARY | 2019-01-02 10:25 | XMS REPORT ---
Author Author NORA BRIDGES [facility] Address [address] [place] [address] Care Team Providers Care Cleaning Technician Name Role Phone NORA BRIDGES Unavailable PROBLEMS Type Condition ICD9-CM Code CPZ33-VF Code Onset Dates Condition Status SNOMED Code Problem Abnormal thyroid blood test R94.6 Active 348194998 Problem Abnormal menses N92.6 Active 832589620 Problem Hypothyroidism, unspecified type E03.9 Active 63515045 Problem Surveillance of previously prescribed implantable subdermal contraceptive V25.43 Active 871460626 Problem Unspecified contraceptive management V25.9 Active 839236801 Problem Unspecified episodic mood disorder 296.90 Active 571477570 Problem Depressive disorder, not elsewhere classified 311 Active 75065702 ALLERGIES No Information ENCOUNTERS Encounter Location Date Diagnosis [facility] [id number] [place] [address] Nov, [facility] [id number] [place] [address] Nov, Abnormal results of thyroid function studies R94.6 [facility] [id number] [place] [address] October, Abnormal menses N92.6 and Hypothyroidism, unspecified type E03.9 [facility] [id number] [place] [address] Sep, [facility] [id number] [place] [address] Sep, [facility] [id number] [place] [address] Sep, [facility] [id number] [place] [address] Sep, [facility] [address] [id number] [place] [address] Jun, [facility] [address] [id number] [place] [address] Jun, [facility] [address] [id number] [place] [address] Jun, [facility] [address] [id number] [place] [address] Jun, [facility] [address] [id number] [place] [address] May, [facility] [address] [id number] [place] [address] May, [facility] [address] [id number] [place] [address] May, [facility] [address] [id number] [place] [address] May, [facility] [address] [id number] [place] [address] May, [facility] [address] [id number] [place] [address] May, [facility] [address] [id number] [place] [address] Apr, [facility] [address] [id number] [place] [address] Apr, [facility] [place] [facility] [address] [id number] [place] [address] Apr, [facility] [place] [facility] [address] [id number] [place] [address] Apr, [facility] [place] [facility] [address] [id number] [place] [address] Apr, [facility] [place] [facility] [address] [id number] [place] [address] Apr, [facility] [address] [facility] [id number] [place] [address] Apr, [facility] [address] [facility] [id number] [place] [address] Apr, IMMUNIZATIONS No Known Immunizations SOCIAL HISTORY Never Assessed REASON FOR VISIT Lab results PLAN OF CARE VITAL SIGNS MEDICATIONS Unknown Medications RESULTS No Results PROCEDURES No Known procedures INSTRUCTIONS MEDICATIONS ADMINISTERED No Known Medications MEDICAL (GENERAL) HISTORY Type Description Date Medical History hypothyroidism
--- OUTSIDE RECORDS SUMMARY | 2019-01-02 10:26 | XMS REPORT | Continuity of Care Document ---
Author Organization Unknown Address Unknown Allergies Active Description Code Type Severity Reaction Onset Reported/Identified Relationship to Patient Clinical Status Yes Penicillins Drug Allergy N/A N/A 05/01/2013 Yes Sulfa (Sulfonamide Antibiotics) Drug Allergy N/A N/A 05/01/2013 Medications There is no data. Problems Date Dx Coded Attending Type Code Diagnosis Diagnosed By 05/01/2013 ANSHU LAND APRN A V25.43 IMPLANON REMOVAL 05/01/2013 LEXY LAND APRNIDI A V25.9 CONTRACEPTION MANAGEMENT 05/01/2013 TAWNYA STANLEY PHD V25.43 IMPLANON REMOVAL 05/01/2013 TAWNYA STANLEY PHD V25.9 CONTRACEPTION MANAGEMENT 05/01/2013 TAWNYA STANLEY PHD V25.43 IMPLANON REMOVAL 05/01/2013 TAWNYA STANLEY PHD V25.9 CONTRACEPTION MANAGEMENT 05/01/2013 EMERY CHIU ANSHU A V25.43 IMPLANON REMOVAL 05/01/2013 LEXY LAND APRNIDI A V25.9 CONTRACEPTION MANAGEMENT 05/01/2013 TAWNYA STANLEY PHD V25.43 IMPLANON REMOVAL 05/01/2013 TAWNYA STANLEY PHD V25.9 CONTRACEPTION MANAGEMENT 05/01/2013 ANNABEL BLAKE MD V25.43 IMPLANON REMOVAL 05/01/2013 ANNABEL BLAKE MD V25.9 CONTRACEPTION MANAGEMENT 05/01/2013 EMERY APPLE, ANSHU A V25.43 IMPLANON REMOVAL 05/01/2013 EMERYNik CHIU ANSHU A V25.9 CONTRACEPTION MANAGEMENT 05/01/2013 EMERY APPLE, ANSHU A V25.43 IMPLANON REMOVAL 05/01/2013 EMERY CHIU, ANSHU A V25.9 CONTRACEPTION MANAGEMENT 05/07/2013 TAWNYA STANLEY PHD 296.90 MOOD DISORDER NOS 05/07/2013 LIZETH MATIAS, TAWNYA A 296.90 MOOD DISORDER NOS 05/07/2013 EMERY FIELD COLLECTOR, ANSHU A 296.90 MOOD DISORDER NOS 05/07/2013 LIZETH MATIAS, TAWNYA A 296.90 MOOD DISORDER NOS 05/07/2013 HAYDEN BARON, ANNABEL 296.90 MOOD DISORDER NOS 05/07/2013 EMERY FIELD COLLECTOR, ANSHU A 296.90 MOOD DISORDER NOS 05/07/2013 EMERY FIELD COLLECTOR, ANSHU A 296.90 MOOD DISORDER NOS 06/06/2013 LIZETH MATIAS, TAWNYA A 311 DEPRESSIVE DISORDER NOS 06/06/2013 HAYDEN BARON, ANNABEL 311 DEPRESSIVE DISORDER NOS 06/06/2013 EMERY FIELD COLLECTOR, ANSHU A 311 DEPRESSIVE DISORDER NOS 06/06/2013 EMERY FIELD COLLECTOR, ANSHU A 311 DEPRESSIVE DISORDER NOS 2013 HAYDEN BARON, ANNABEL 784.0 HEADACHE 2013 HAYDEN BARON, ANNABEL 787.02 NAUSEA ALONE 2013 HAYDEN BARON, ANNABEL 787.03 VOMITING ALONE 2013 EMERY FIELD COLLECTOR, ANSHU A 784.0 HEADACHE 2013 EMERY FIELD COLLECTOR, ANSHU A 787.02 NAUSEA ALONE 2013 EMERY FIELD COLLECTOR, ANSHU A 787.03 VOMITING ALONE 2013 EMERY FIELD COLLECTOR, ANSHU A 784.0 HEADACHE 2013 EMERY FIELD COLLECTOR, ANSHU A 787.02 NAUSEA ALONE 2013 EMERY FIELD COLLECTOR, ANSHU A 787.03 VOMITING ALONE 11/24/2018 SABINO WHITEHEAD DO Ot Z34.01 ENCNTR FOR SUPRVSN OF NORMAL FIRST PREG, Procedures Code Description [place] [address] IMPLANON REMOVAL 05/01/2013 64016 PSYCHO TESTING 1 HR W COMP 05/01/2013 J1050 DEPO PROVERA 05/01/2013 63460 THERAPUTIC INJ SQ/IM 05/01/2013 33399 PSYCH DIAGNOSTIC EVALUATION 05/08/2013 28260 PSYCH FAMILY TX W/PAT 05/17/2013 67319 PSYCH FAMILY TX W/PAT 06/07/2013 96250 ROUTINE VENIPUNCTURE 2013 98805 MONO TEST (RML) 2013 HCGQULRLX HCG QUALITATIVE W/ REFLEX 2013 04053 CMP 2013 74364 CBC 2013 00622 CARBOXYHEMOGLOBIN 06/13/2013 16590 THERAPUTIC INJ SQ/IM 07/04/2013 J1050 DEPO PROVERA 07/04/2013 Results Test Result Range THYROID ANALYZER - 11/24/17 14:13 TSH 0.01 mIU/L NRG INTERPRETATION - 11/24/17 14:13 T4, FREE 1.7 ng/dL 0.8-1.4 INTERPRETATION - 11/24/17 14:13 INTERPRETATION NRG CULTURE, GENITAL - 03/14/18 13:11 CULTURE, GENITAL SEE NOTE NRG HEPATITIS PROFILE - 03/30/18 09:00 HEPATITIS A IGM NON-REACTIVE NON-REACTIVE HEPATITIS B SURFACE ANTIGEN NON-REACTIVE NON-REACTIVE HEPATITIS B CORE ANTIBODY (IGM) NON-REACTIVE NON-REACTIVE HEPATITIS C ANTIBODY NON-REACTIVE NON-REACTIVE SIGNAL TO CUT-OFF 0.13 <1.00 HEP C PCR QUANT (Graph)-APPROVAL REQUIRED - 04/03/18 10:54 HCV RNA, QUANTITATIVE REAL TIME PCR <15 NOT DETECTED IU/mL NOT DETECTED HCV RNA, QUANTITATIVE REAL TIME PCR <1.18 NOT DETECTED Log IU/mL NOT DETECTED COMMENT NRG HIV ANTIGEN/ANTIBODY - 10/02/18 14:57 HIV AG/AB, 4TH GEN NON-REACTIVE NON-REACTIVE CBC - 10/02/18 14:57 WHITE BLOOD CELL COUNT 10.3 Thousand/uL 3.8-10.8 RED BLOOD CELL COUNT 4.19 Million/uL 3.80-5.10 HEMOGLOBIN 13.1 g/dL 11.7-15.5 HEMATOCRIT 38.9 % 35.0-45.0 MCV 92.8 fL 80.0-100.0 MCH 31.3 pg 27.0-33.0 MCHC 33.7 g/dL 32.0-36.0 RDW 13.1 % 11.0-15.0 PLATELET COUNT 267 Thousand/uL 140-400 MPV 9.3 fL 7.5-12.5 ABSOLUTE NEUTROPHILS 6613 cells/uL 3293-4106 ABSOLUTE LYMPHOCYTES 2905 cells/uL 850-3900 ABSOLUTE MONOCYTES 525 cells/uL 200-950 ABSOLUTE EOSINOPHILS 216 cells/uL 15-500 ABSOLUTE BASOPHILS 41 cells/uL 0-200 NEUTROPHILS 64.2 % NRG LYMPHOCYTES 28.2 % NRG MONOCYTES 5.1 % NRG EOSINOPHILS 2.1 % NRG BASOPHILS 0.4 % NRG BLOOD TPYE/RH FACTOR - 10/02/18 14:57 ABO GROUP A NRG RH TYPE RH(D) NEGATIVE NRG ANTIBODY SCREEN - 10/02/18 14:57 ANTIBODY SCREEN, RBC W/REFL ID, TITER AND AG NO ANTIBODIES DETECTED NRG SYPHILIS (RPR W/ REFLEX CONFIRMATION) - 10/02/18 14:57 RPR (DX) W/REFL TITER AND CONFIRMATORY TESTING NON-REACTIVE NON-REACTIVE HCG, QUANTITATIVE - 10/02/18 14:57 HCG, TOTAL, QN 3228 mIU/mL NRG CULTURE, URINE - 10/02/18 14:57 CULTURE, URINE, ROUTINE SEE NOTE NRG GC/CHLAMYDIA (SWAB OR URINE)-RAPID - 10/02/18 14:57 CHLAMYDIA TRACHOMATIS RNA, TMA DETECTED NOT DETECTED NEISSERIA GONORRHOEAE RNA, TMA NOT DETECTED NOT DETECTED COMMENT NRG SUREPATH PAP RFX HPV mRNA E6/E7 - 10/02/18 14:57 CLINICAL INFORMATION: NRG LMP: NRG PREV. PAP: NRG PREV. BX: NRG SOURCE: [employer] NRG STATEMENT OF ADEQUACY: NRG INTERPRETATION/RESULT: NRG LEVER OPERATOR: NRG COMMENT NRG GC/CHLAMYDIA (SWAB OR URINE)-RAPID - 11/22/18 14:47 CHLAMYDIA TRACHOMATIS RNA, TMA NOT DETECTED NOT DETECTED NEISSERIA GONORRHOEAE RNA, TMA NOT DETECTED NOT DETECTED COMMENT NRG Encounters ACCT No. Visit Date/Time Discharge Status Pt. Type Provider Facility Loc./Unit Complaint [id number] 12/21/2018 15:30:00 12/21/2018 23:59:59 CLS Outpatient [facility] [id number] 11/22/2018 14:30:00 Document Registration [id number] 10/02/2018 13:45:00 Document Registration [id number] 04/03/2018 10:40:00 Document Registration [id number] 03/30/2018 09:00:00 Document Registration [id number] 03/14/2018 10:40:00 Document Registration [id number] 11/24/2017 14:00:00 Document Registration [id number] 11/22/2018 15:20:00 11/22/2018 23:59:59 CLS Outpatient SABINO WHITEHEAD DO [facility] LAB FS STANDARD PANEL; ANEUPLOIDY SCREENING, OXANA [id number] 07/04/2013 09:58:00 07/04/2013 23:59:59 CLS Outpatient ANSHU LAND APRN [id number] 07/04/2013 09:58:00 07/04/2013 23:59:59 CLS Outpatient ANSHU LAND APRN [id number] 2013 14:56:00 2013 23:59:59 CLS Outpatient ANNABEL BLAKE MD [id number] 06/06/2013 14:53:00 06/06/2013 23:59:59 CLS Outpatient TAWNYA STANLEY PHD [id number] 05/16/2013 14:48:00 05/16/2013 23:59:59 CLS Outpatient TAWNYA STANLEY PHD [id number] 05/07/2013 13:32:00 05/07/2013 23:59:59 CLS Outpatient TAWNYA STANLEY PHD [id number] 05/01/2013 09:02:00 05/01/2013 23:59:59 CLS Outpatient ANSHU LAND APRN [id number] 05/01/2013 09:02:00 05/01/2013 23:59:59 CLS Outpatient ANSHU LAND APRN
--- OUTSIDE RECORDS SUMMARY | 2019-01-02 10:26 | XMS REPORT ---
Author Author BRIDGESNORA Du [facility] Address [address] [place] [address] Care Team Providers Care Plan Checker Name Role Phone NORA BRIDGES Unavailable PROBLEMS Type Condition ICD9-CM Code XKY70-HY Code Onset Dates Condition Status SNOMED Code Problem Abnormal thyroid blood test R94.6 Active 058681837 Problem Abnormal menses N92.6 Active 482220747 Problem Hypothyroidism, unspecified type E03.9 Active 11233804 Problem Surveillance of previously prescribed implantable subdermal contraceptive V25.43 Active 621026131 Problem Unspecified contraceptive management V25.9 Active 859601922 Problem Unspecified episodic mood disorder 296.90 Active 946355124 Problem Depressive disorder, not elsewhere classified 311 Active 70131149 ALLERGIES Substance Reaction Event Type Date Status Penicillins Unknown Non Drug Allergy October, Active Sulfa (sulfonamide Antibiotics) Unknown Non Drug Allergy October, Active ENCOUNTERS Encounter Location Date Diagnosis [place] [id number] [place] [phone] Nov, [facility] [id number] [place] [address] Nov, Abnormal results of thyroid function studies R94.6 [facility] [id number] [place] [phone] October, Abnormal menses N92.6 and Hypothyroidism, unspecified type E03.9 [facility] [id number] [place] [address] Sep, [facility] [id number] [place] [address] Sep, [facility] [id number] [place] [address] Sep, [facility] [address] [id number] [place] [address] Sep, [facility] [place] [facility] [address] [id number] [place] [address] Jun, [facility] [place] [facility] [address] [id number] [place] [address] Jun, [facility] [place] [facility] [address] [id number] [place] [address] Jun, [facility] [place] [facility] [address] [id number] [place] [address] Jun, [facility] [place] [facility] [address] [id number] [place] [address] May, [facility] [place] [facility] [address] [id number] [place] [address] May, [facility] [place] [facility] [address] [id number] [place] [address] May, [facility] [place] [facility] [address] [id number] [place] [address] May, [facility] [place] [facility] [address] [id number] [place] [address] May, [facility] [place] [facility] [address] [id number] [place] [address] May, [facility] [place] [facility] [address] [id number] [place] [address] Apr, [facility] [place] [facility] [address] [id number] [place] [address] Apr, [facility] [place] [facility] [address] [id number] [place] [address] Apr, [facility] [place] [facility] [address] [id number] [place] [address] Apr, [facility] [place] [facility] [address] [id number] [place] [address] Apr, [facility] [address] [facility] [id number] [place] [address] Apr, [facility] [address] [facility] [id number] [place] [address] Apr, [facility] [address] [facility] [id number] [place] [address] Apr, IMMUNIZATIONS No Known Immunizations SOCIAL HISTORY Never Assessed REASON FOR VISIT irregular bleeding-twoodenMA PLAN OF CARE Activity Details Follow Up 3 Months Reason:est care VITAL SIGNS Height 66 in 2017-11-24 Weight 197.1 lbs 2017-11-24 Temperature 97.9 degrees Fahrenheit 2017-11-24 Heart Rate 112 bpm 2017-11-24 Respiratory Rate 20 2017-11-24 BMI 31.81 kg/m2 2017-11-24 Blood pressure systolic 110 mmHg 2017-11-24 Blood pressure diastolic 76 mmHg 2017-11-24 MEDICATIONS Unknown Medications RESULTS No Results PROCEDURES Procedure Date Ordered Result Body Site CHORIONIC GONADOTROPIN TEST November 24, 2017 COMPLETE CBC W/AUTO DIFF WBC November 24, 2017 ASSAY THYROID STIM HORMONE November 24, 2017 VENIPUNCT, ROUTINE* November 24, 2017 INSTRUCTIONS MEDICATIONS ADMINISTERED No Known Medications MEDICAL (GENERAL) HISTORY Type Description Date Medical History hypothyroidism
--- NOTE | 2019-01-02 10:50 | ED General ---
General Chief Complaint: General Problems/Pain Stated Complaint: 15 WKS / BAD CRAMPING Nursing Triage Note: AMB TO ROOM REPORT IS APX 16 WEEKS PREG ONSET OF CRAMPING YESTERDAY NO BLEEDING. HAD APPOINTMENT TODAY IS [facility] WAS TOLD BY HER BOSS SHE COULD NOT GO TO [facility] BECAUSE SHE WAS ON THE CLOCK JUST GO TO THE ER. Nursing Sepsis Screen: No Definite Risk Source of Information: Patient Exam Limitations: No Limitations History of Present Illness Date Seen by Provider: Jan 02, 2019 Time Seen by Provider: 10:48 Initial Comments To ER with reports of right-sided abdominal cramping that began yesterday around 10 AM has been constant since then. No vaginal bleeding. She is about 16 weeks gestation with last menstrual period sometime around July or August of this year. . No vaginal bleeding. Timing/Duration: 1-2 Days Severity: Moderate Associated Systoms: Denies Symptoms Allergies and Home Medications Home Medications No Active Prescriptions or Reported Meds Patient Home Medication List Home Medication List Reviewed: Yes Review of Systems Review of Systems Constitutional: see HPI EENTM: see HPI Respiratory: no symptoms reported Cardiovascular: no symptoms reported Genitourinary: no symptoms reported Musculoskeletal: no symptoms reported Skin: no symptoms reported Psychiatric/Neurological: No Symptoms Reported Hematologic/Lymphatic: No Symptoms Reported Past Blgohvq-Bqzrre-Woetdr Hx Patient Social History Alcohol Use: Occasionally Uses Recreational Drug Use: No Smoking Status: Former Smoker Recent Foreign Travel: No Contact w/Someone Who Travel: No Recent Infectious Disease Expo: No Past Medical History Surgeries: Yes Gallbladder, Thyroidectomy Physical Exam Vital Signs Vital Signs - First Documented 01/02/19 09:43 Temp 97.1 Pulse 100 Resp 18 B/P (MAP) 127/82 (97) Pulse Ox 99 O2 Delivery Room Air Capillary Refill : Less Than 3 Seconds Height, Weight, BMI Height: 5'4.00" Weight: 183lbs. oz. 83.733018wi; BMI Method:Stated General Appearance: No Apparent Distress, WD/WN Eyes: Bilateral Eye Normal Inspection, Bilateral Eye PERRL, Bilateral Eye EOMI HEENT: PERRL/EOMI, TMs Normal Neck: Full Range of Motion, Normal Inspection Respiratory: No Accessory Muscle Use, No Respiratory Distress Cardiovascular: Regular Rate, Rhythm, Normal Peripheral Pulses Gastrointestinal: Normal Bowel Sounds, Non Tender, Soft Extremity: Normal Capillary Refill, Normal Inspection Neurologic/Psychiatric: Alert, Oriented x3 Skin: Normal Color, Warm/Dry Progress/Results/Core Measures Suspected Sepsis Recent Fever Within 48 Hours: No Infection Criteria Present: None New/Unexplained Altered Menta: No Sepsis Screen: No Definite Risk SIRS Temperature:97.1 Pulse: 100 Respiratory Rate: 18 Laboratory Tests 01/02/19 11:20: White Blood Count 10.8 Blood Pressure 127 /82 Mean: 97 Laboratory Tests 01/02/19 11:20: Creatinine 0.57L, Platelet Count 203, Total Bilirubin 0.2 Results/Orders Lab Results Laboratory Tests Test 01/02/19 11:16 01/02/19 11:20 Range/Units Urine Color AVNI H Urine Clarity SLIGHTLY CLOUDY Urine pH 7 5-9 Urine Specific [place] 1.015 L 1.016-1.022 Urine Protein 1+ H NEGATIVE Urine Glucose (UA) NEGATIVE NEGATIVE Urine Ketones 1+ H NEGATIVE Urine Nitrite NEGATIVE NEGATIVE Urine Bilirubin NEGATIVE NEGATIVE Urine Urobilinogen 1 NORMAL MG/DL Urine Leukocyte Esterase 1+ H NEGATIVE Urine RBC (Auto) NEGATIVE NEGATIVE Urine RBC RARE /HPF Urine WBC 5-10 H /HPF Urine Squamous Epithelial Cells 10-25 H /HPF Urine Crystals NONE /LPF Urine Bacteria MODERATE H /HPF Urine Casts NONE /LPF Urine Mucus MODERATE H /LPF Urine Culture Indicated YES Urine Opiates Screen NEGATIVE NEGATIVE Urine Oxycodone Screen NEGATIVE NEGATIVE Urine Methadone Screen NEGATIVE NEGATIVE Urine Propoxyphene Screen NEGATIVE NEGATIVE Urine Barbiturates Screen NEGATIVE NEGATIVE Ur Tricyclic Antidepressants Screen NEGATIVE NEGATIVE Urine Phencyclidine Screen NEGATIVE NEGATIVE Urine Amphetamines Screen NEGATIVE NEGATIVE Urine Methamphetamines Screen NEGATIVE NEGATIVE Urine Benzodiazepines Screen NEGATIVE NEGATIVE Urine Cocaine Screen NEGATIVE NEGATIVE Urine Cannabinoids Screen NEGATIVE NEGATIVE White Blood Count 10.8 4.3-11.0 10^3/uL Red Blood Count 3.94 L 4.35-5.85 10^6/uL Hemoglobin 12.6 11.5-16.0 G/DL Hematocrit 36 35-52 % Mean Corpuscular Volume 92 80-99 FL Mean Corpuscular Hemoglobin 32 25-34 PG Mean Corpuscular Hemoglobin Concent 35 32-36 G/DL Red Cell Distribution Width 12.9 10.0-14.5 % Platelet Count 203 130-400 10^3/uL Mean Platelet Volume 9.1 7.4-10.4 FL Neutrophils (%) (Auto) 73 42-75 % Lymphocytes (%) (Auto) 19 12-44 % Monocytes (%) (Auto) 6 0-12 % Eosinophils (%) (Auto) 2 0-10 % Basophils (%) (Auto) 0 0-10 % Neutrophils # (Auto) 7.9 H 1.8-7.8 X 10^3 Lymphocytes # (Auto) 2.1 1.0-4.0 X 10^3 Monocytes # (Auto) 0.6 0.0-1.0 X 10^3 Eosinophils # (Auto) 0.2 0.0-0.3 10^3/uL Basophils # (Auto) 0.0 0.0-0.1 10^3/uL Sodium Level 137 135-145 MMOL/L Potassium Level 4.0 3.6-5.0 MMOL/L Chloride Level 108 H 98-107 MMOL/L Carbon Dioxide Level 19 L 21-32 MMOL/L Anion Gap 10 5-14 MMOL/L Blood Urea Nitrogen 5 L 7-18 MG/DL Creatinine 0.57 L 0.60-1.30 MG/DL Estimat Glomerular Filtration Rate > 60 BUN/Creatinine Ratio 9 Glucose Level 81 70-105 MG/DL Calcium Level 9.4 8.5-10.1 MG/DL Corrected Calcium 9.5 8.5-10.1 MG/DL Total Bilirubin 0.2 0.1-1.0 MG/DL Aspartate Amino Transf (AST/SGOT) 12 5-34 U/L Alanine Aminotransferase (ALT/SGPT) 15 0-55 U/L Alkaline Phosphatase 50 40-136 U/L Total Protein 6.6 6.4-8.2 GM/DL Albumin 3.9 3.2-4.5 GM/DL Human Chorionic Gonadotropin, Quant 9661 H <5 MIU/ML My Orders Orders - SUE ONEAL [employer]IAISON Cbc With Automated Diff (01/02/19 10:47) Hcg,Quantitative (01/02/19 10:47) Comprehensive Metabolic Panel (01/02/19 10:47) Ua Culture If Indicated (01/02/19 10:47) Drug Screen Stat (Urine) (01/02/19 10:47) Us Ob Preg Late(14-40wks)07985 (01/02/19 10:47) Urine Culture (01/02/19 11:16) Vital Signs/I&O 01/02/19 09:43 Temp 97.1 Pulse 100 Resp 18 B/P (MAP) 127/82 (97) Pulse Ox 99 O2 Delivery Room Air Capillary Refill : Less Than 3 Seconds Blood Pressure Mean: 97 Departure Impression Primary Impression: Abdominal cramping affecting Additional Impression: Urinary tract infection Qualified Codes: N30.00 - Acute cystitis without hematuria Disposition: HOME, SELF-CARE Condition: Stable Departure-Patient Inst. Decision time for Depature: 12:02 Referrals: SABINO WHITEHEAD DO (PCP) Primary Care Physician Patient Instructions: Urinary Tract Infection, Adult (DC) Add. Discharge Instructions: 1. dRINK PLENTY OF FLUIDS 2. kEEP HER APPOINTMENT WITH dR. Perez 3. rETURN TO er FOR ANY CONCERNS. aNTIBIOTIC DIRECTED.All discharge instructi ons reviewed with patient and/or family. Voiced understanding. Scripts Cefuroxime Axetil (Cefuroxime) 250 Mg Tablet 250 MG PO BID, #10 TAB Prov: SUE ONEAL APRN 01/02/19 Work/School Note: Work Release Form Date Seen in the Emergency Department: Jan 02, 2019 Return to Work: Jan 03, 2019 SUE ONEAL APRN Jan 02, 2019 10:50
--- NOTE | 2019-01-02 11:10 | NUR ---
LAB CALLED TO DRAW BLOOD.
[2019-01-02 11:27] LABS: BILIRUBIN,URINE NEGATIVE (NEGATIVE); CLARITY,URINE SLIGHTLY CLOUDY; COLOR,URINE AMBER; GLUCOSE, URINE (UA) NEGATIVE (NEGATIVE); KETONES,URINE 1+ (NEGATIVE); LEUKOCYTE ESTERASE ,URINE 1+ (NEGATIVE); NITRITE,URINE NEGATIVE (NEGATIVE); PH,URINE 7 (5-9); PROTEIN,URINE 1+ (NEGATIVE); UROBILINOGEN,URINE 1 MG/DL (NORMAL)
[2019-01-02 11:27] LABS: BASOPHILS % (AUTO) 0 % (0-10); EOSINOPHILS # (AUTO) 0.2 10^3/uL (0.0-0.3); EOSINOPHILS % (AUTO) 2 % (0-10); HEMATOCRIT 36 % (35-52); HEMOGLOBIN 12.6 G/DL (11.5-16.0); LYMPHOCYTES # (AUTO) 2.1 X 10^3 (1.0-4.0); LYMPHOCYTES % (AUTO) 19 % (12-44); MEAN CORPUSCULAR HEMOGLOBIN 32 PG (25-34); MEAN CORPUSCULAR HGB CONC 35 G/DL (32-36); MEAN CORPUSCULAR VOLUME 92 FL (80-99); MEAN PLATELET VOLUME 9.1 FL (7.4-10.4); MONOCYTES # (AUTO) 0.6 X 10^3 (0.0-1.0); MONOCYTES % (AUTO) 6 % (0-12); NEUTROPHILS # (AUTO) 7.9 X 10^3 (1.8-7.8); NEUTROPHILS % (AUTO) 73 % (42-75); PLATELET COUNT 203 10^3/uL (130-400); RED CELL DISTRIBUTION WIDTH 12.9 % (10.0-14.5); WHITE BLOOD COUNT 10.8 10^3/uL (4.3-11.0)
[2019-01-02 11:37] LABS: BACTERIA,URINE MODERATE /HPF; RBC,URINE RARE /HPF
[2019-01-02 11:40] LABS: AMPHETAMINE SCREEN, URINE NEGATIVE (NEGATIVE); BARBITURATE SCREEN URINE NEGATIVE (NEGATIVE); BENZODIAZEPINES SCREEN URINE NEGATIVE (NEGATIVE); CANNABINOID SCREEN, URINE NEGATIVE (NEGATIVE); COCAINE SCREEN URINE NEGATIVE (NEGATIVE); METHADONE STAT NEGATIVE (NEGATIVE); METHAMPHETAMINE SCREEN URINE S NEGATIVE (NEGATIVE); OPIATE SCREEN URINE NEGATIVE (NEGATIVE); OXYCODONE STAT NEGATIVE (NEGATIVE); PROPOXYPHENE STAT NEGATIVE (NEGATIVE); TRICYCLIC ANTIDEPRESSANTS SCRE NEGATIVE (NEGATIVE)
[2019-01-02 11:46] LABS: ALANINE AMINOTRANSFERASE 15 U/L (0-55); ALBUMIN 3.9 GM/DL (3.2-4.5); ALKALINE PHOSPHATASE 50 U/L (40-136); BILIRUBIN,TOTAL 0.2 MG/DL (0.1-1.0); BUN/CREATININE RATIO 9; CALCIUM 9.4 MG/DL (8.5-10.1); CARBON DIOXIDE 19 MMOL/L (21-32); CHLORIDE 108 MMOL/L (98-107); CREATININE SERUM 0.57 MG/DL (0.60-1.30); GFR ESTIMATED > 60; GLUCOSE 81 MG/DL (70-105); SODIUM 137 MMOL/L (135-145); TOTAL PROTEIN 6.6 GM/DL (6.4-8.2)
[2019-01-02] MEDS ORDERED: CEFU250T80 PO (12:02)
[2019-01-02 12:06] VITALS: BP 127/82
--- NOTE | 2019-01-02 12:35 | Diagnostic Imaging Report ---
INDICATION: Right-sided pain. TECHNIQUE: Multiple real-time grayscale images were obtained over the gravid uterus. COMPARISON: None FINDINGS: There is a single live fetus in a cephalic presentation. heart rate was recorded at 135 beats per minute. Placenta appears to be to the right with both anterior and posterior component. Placenta is somewhat low in position likely marginal location. No abruption is seen. Amniotic fluid volume is normal. Biometrical measurements are as follows: Biparietal 4.38 cm, age 19 weeks 2 days. Head circumference 16.38 cm, age 19 weeks 1 days. Abdominal circumference 12.57 cm, age 18 weeks 2 days. Femur length 3.03 cm, age 19 weeks 3 days. Sonographic estimate age: 19 weeks 1 days. Sonographic estimated date of delivery: 05/28/19. Estimated Weight: 258 gm (+/- 38 gm). LMP percentile: NA%. heart rate: 135 beats per minute. number: 1 of 1. IMPRESSION: Single live IUP approximately 19 weeks gestational age with estimated date of confinement sonographically of 05/28/2019. Placenta appears to be marginal. Followup could be performed. No complicating features are seen. Dictated by: Dictated on workstation # [id number]
== END 2019-01-02 12:06 | disposition home or self-care (01) ==
LOC: EDUNIT# 09:39 → ER 09:41
DX: O23.42 Unspecified infection of urinary tract in pregnancy, second trimester (principal); Z87.891 Personal history of nicotine dependence; Z3A.16 16 weeks gestation of pregnancy
CPT/HCPCS: 36415; 76805; 80053; 80306; 81000; 84702; 85025; 87088

== ENCOUNTER 2019-05-21 12:00 | Inpatient (IN) | payer MEDICAID ==
[~2019-05-21] VITALS: Ht 162 cm; Wt 84.1 kg
[2019-05-21] VITALS (10 sets, daily range): BP systolic 107–131; BP diastolic 68–84
--- NOTE | 2019-05-21 01:35 | NUR ---
PT SENDS TO [facility] SO SHE MAY AMBULATE. PT AND HER MOM UP AMB IN HALLS AND OFF UNIT. Addendum: 05/22/19 at 0633 by WESTLEY BENSON RN INCORRECT DATE. SHOULD BE 05/22/19
[~2019-05-21 12:00] MED LIST: CEFU250T80 PO
--- NOTE | 2019-05-21 12:00 | NUR ---
MELINA SCHULTZ presented to unit via from ED, accompanied by [], with c/o LABOR. MELINA SCHULTZ weighed, gowned, voided, and to bed. EFHM and TOCO applied, VS taken. MELINA SCHULTZ oriented to bed controls, call light, TV, heat, and A/C controls.
[2019-05-21 13:01] LABS: BILIRUBIN,URINE NEGATIVE (NEGATIVE); CLARITY,URINE CLEAR; COLOR,URINE YELLOW; GLUCOSE, URINE (UA) NEGATIVE (NEGATIVE); KETONES,URINE NEGATIVE (NEGATIVE); LEUKOCYTE ESTERASE ,URINE NEGATIVE (NEGATIVE); NITRITE,URINE NEGATIVE (NEGATIVE); PH,URINE 8.5 (5-9); PROTEIN,URINE NEGATIVE (NEGATIVE)
[2019-05-21 13:09] LABS: AMORPHOUS SEDIMENT,UR FEW AMOR PHOSPHATE /LPF; BACTERIA,URINE NEGATIVE /HPF; WBC,URINE 0-2 /HPF
[2019-05-21] MEDS ORDERED: LACTATED RINGERS 1,000 ML IV ONE ×2 (13:41→16:23)
[2019-05-21] MEDS ORDERED: SUFENTA 0.6MCG/ML BUPIVA 0.125 100 ML ONE (13:41)
[2019-05-21] MEDS ORDERED: D5 LR IV SOLUTION 1,000 ML IV ONE (13:41)
[2019-05-21] MEDS ORDERED: D5 LR IV SOLUTION 1,000 ML IV SCH (13:49)
[2019-05-21] MEDS ORDERED: MINERAL OIL CONCENTRATE 99.9% 15 ML UDC TOP PRN (14:00)
[2019-05-21] MEDS ORDERED: CATHETER FLUSH 10 ML SYR IV SCH ×2 (14:00→22:00)
[2019-05-21 14:11] LABS: BASOPHILS # (AUTO) 0.3 10^3/uL (0.0-0.1); BASOPHILS % (AUTO) 2 % (0-10); EOSINOPHILS # (AUTO) 0.1 10^3/uL (0.0-0.3); EOSINOPHILS % (AUTO) 1 % (0-10); HEMATOCRIT 37 % (35-52); HEMOGLOBIN 12.4 G/DL (11.5-16.0); LYMPHOCYTES % (AUTO) 55 % (12-44); MEAN CORPUSCULAR HEMOGLOBIN 31 PG (25-34); MEAN CORPUSCULAR HGB CONC 34 G/DL (32-36); MEAN CORPUSCULAR VOLUME 91 FL (80-99); MEAN PLATELET VOLUME 10.2 FL (7.4-10.4); MONOCYTES # (AUTO) 0.8 X 10^3 (0.0-1.0); MONOCYTES % (AUTO) 6 % (0-12); NEUTROPHILS # (AUTO) 4.6 X 10^3 (1.8-7.8); NEUTROPHILS % (AUTO) 36 % (42-75); PLATELET COUNT 186 10^3/uL (130-400); RED CELL DISTRIBUTION WIDTH 14.9 % (10.0-14.5); WHITE BLOOD COUNT 12.7 10^3/uL (4.3-11.0)
[2019-05-21] MEDS ORDERED: OXYTOCIN/NORMAL SALINE 500 ML IV ONE ×2 (14:21→20:52)
[2019-05-21] MEDS ORDERED: CLINDAMYCIN 900 MG/50 ML IVPB 50 ML IV ONE (14:21)
[2019-05-21] MEDS ORDERED: BUPIVACAINE 0.25% 30 ML (SENSORCAINE) VIAL ONE (14:58)
[2019-05-21] MEDS ORDERED: LIDOCAINE PF 2% 5 ML (XYLOCAINE) VIAL ONE (14:58)
[2019-05-21] MEDS ORDERED: fentaNYL INJECTION 100 MCG/2 ML AMP ONE (14:59)
[2019-05-21] MEDS ORDERED: CATHETER FLUSH 10 ML SYR IV PRN (16:30)
[2019-05-21] MEDS ORDERED: NALOXONE 0.4 MG/ML 1 ML (NARCAN) VIAL IV PRN (16:30)
[2019-05-21] MEDS ORDERED: ONDANSETRON 4 MG/2 ML (SDV) Z0FRAN IV PRN (16:30)
[2019-05-21] MEDS ORDERED: EPIDURAL (SUFENTA 0.6MCG/ML BUPIVA 0.125%) 100 ML BAG EPI SCH (16:30)
[2019-05-21] MEDS ORDERED: diphenhydrAMINE 50 MG/ML INJ (BENADRYL) IV PRN (16:30)
--- NOTE | 2019-05-21 17:28 | History & Physical-OB/GYN ---
History of Present Illness History of Present Illness Reason for visit/HPI Ms. Alejandra is 37 6/7 weeks gestation that presented with the onset of labor Date of Admission May 21, 2019 at 13:20 Date Seen by a Provider: May 21, 2019 Time Seen by a Provider: 15:40 I consulted on this patient on 05/21/19 17:23 Attending Physician Rasheed Yanez DO Admitting Physician Rasheed Yanez DO Consult Allergies and Home Medications Allergies Coded Allergies: No Known Drug Allergies (Unverified , 05/21/19) Home Medications Cefuroxime Axetil 250 Mg Tablet, 250 MG PO BID Prescribed by: SUE ONEAL on 01/02/19 1202 Patient Home Medication List Home Medication List Reviewed: Yes Past Bsdelfy-Hpskqy-Lzxdnj Hx Patient Social History Marrital Status: single Number of Children: 0 Number of living children: 0 Alcohol Use: Denies Use Recreational Drug Use: No Smoking Status: Current Everyday Smoker Type Used: Cigarettes Physical Abuse Screen: No Sexual Abuse: No Recent Foreign Travel: No Contact w/other who traveled: No Recent Infectious Disease Expo: No Surgeries Yes Gallbladder, Thyroidectomy Review of Systems Constitutional: see HPI Physical Exam Physical Exam Vital Signs Vital Signs Date Time Temp Pulse Resp B/P (MAP) Pulse Ox O2 Delivery O2 Flow Rate FiO2 05/21/19 12:00 37.0 111 20 99 Room Air Capillary Refill : Less Than 3 Seconds Labs Laboratory Tests 05/21/19 12:40: Urine Color YELLOW, Urine Clarity CLEAR, Urine pH 8.5, Urine Specific [place] 1.025H, Urine Protein NEGATIVE, Urine Glucose (UA) NEGATIVE, Urine Ketones NEGATIVE, Urine Nitrite NEGATIVE, Urine Bilirubin NEGATIVE, Urine Urobilinogen 0.2, Urine Leukocyte Esterase NEGATIVE, Urine RBC (Auto) 3+H, Urine RBC 5-10H, Urine WBC 0-2, Urine Squamous Epithelial Cells 5-10, Urine Crystals PRESENTH, Urine Amorphous Sediment FEW ROHIT PHOSPHATEH, Urine Bacteria NEGATIVE, Urine Casts NONE, Urine Mucus SMALLH, Urine Culture Indicated NO 05/21/19 13:35: White Blood Count 12.7H, Red Blood Count 4.07L, Hemoglobin 12.4, Hematocrit 37, Mean Corpuscular Volume 91, Mean Corpuscular Hemoglobin 31, Mean Corpuscular Hemoglobin Concent 34, Red Cell Distribution Width 14.9H, Platelet Count 186, Mean Platelet Volume 10.2, Neutrophils (%) (Auto) 36L, Lymphocytes (%) (Auto) 55H, Monocytes (%) (Auto) 6, Eosinophils (%) (Auto) 1, Basophils (%) (Auto) 2, Neutrophils # (Auto) 4.6, Lymphocytes # (Auto) 7.0H, Monocytes # (Auto) 0.8, Eosinophils # (Auto) 0.1, Basophils # (Auto) 0.3H General Appearance: No Apparent Distress, WD/WN Respiratory: Chest Non Tender, Lungs Clear Cardiovascular: Regular Rate, Rhythm Abdominal: normal bowel sounds, non tender Cervix: WNL, Other (3 cm/50%/-3 Vertex/Intact) Assessment/Plan Assessment and Plan Assessment: Intrauterine at 37 6/7 weeks--active labor 2. GBS Positive Plan: Augment labor with Pitocin. IV antibiotics. Pain management . I expect a normal spontaneous vaginal delivery. Admission Diagnosis Intrauterine at 37 6/7 weeks--active labor 2. GBS Positive Admission Status: Inpatient Order (span 2 midnights) Reason for Inpatient Admission: Intrauterine at 37 6/7 weeks--active labor 2. GBS Positive Clinical Quality Measures DVT/VTE Risk/Contraindication: Risk Factor Score Per Nursin RFS Level Per Nursing on Admit: 1=Low/No VTE PPX RASHEED YANEZ DO May 21, 2019 17:28 POS
[2019-05-21] MEDS ORDERED: CLINDAMYCIN 900 MG/50 ML IVPB 50 ML IV SCH (18:00)
[2019-05-21] MEDS ORDERED: LIDOCAINE 1% INJ 20 ML 20 ML VIAL ONE (20:16)
--- NOTE | 2019-05-21 20:35 | NUR ---
2024 OF VIABLE MALE INFANT. 2028 DELIVERY OF INTACT PLACENTA. PITOCIN TO WIDE OPEN RATE. 2034 [address] WHITEHEAD. PT CLEANED UP AND V-PAD PLACED. BED TOGETHER AND PT ALLOWED TO REST.
[2019-05-21] MEDS ORDERED: OXYTOCIN/NORMAL SALINE 500 ML IV SCH (20:44)
[2019-05-21] MEDS ORDERED: WITCH HAZEL(TUCKS) 40 EA JAR TOP PRN (20:45)
[2019-05-21] MEDS ORDERED: TETANUS,DIPTH,PERTUSS P/F (BOOSTRIX) 0.5 ML VIAL IM ONE (20:45)
[2019-05-21] MEDS ORDERED: BENZOCAINE/MENTHOL (DERMOPLAST) 56 ML CAN TP PRN (20:45)
[2019-05-21] MEDS ORDERED: MEASLES,MUMPS,RUBELLA 1 EA INJ SQ ONE (20:45)
[2019-05-21] MEDS ORDERED: DIBUCAINE (NUPERCAINAL) 1% OINT 30 GM TOP PRN (20:45)
--- NOTE | 2019-05-21 20:49 | OB Labor & Delivery Record ---
Vag Delivery Note Vag Delivery Note Date of Delivery: 05/21/19 Preoperative Diagnosis: Karen Alejandra is a (18 /Para / ,Gestational Age (37 6/7 wks)with [] Postoperative Diagnosis: Same Surgeon: SABINO WHITEHEAD Chief Pharmacist: [None] Anesthesia: [Epidural and Local] Delivery Type: [Normal Spontaneous Vaginal Delivery with Midline Episiotomy and Standard Repair] Findings: [] Viable [Male] , apgars [9. 9], weight [7 lb 4 oz] Lacerations: Midline Episiotomy, no extension, standard repair Intact placenta with 3 vessel cord. No nuchal cord, body cord or shoulder dystocia Estimated Blood Loss: [300] ml Complications: None Condition: Stable Description of Procedure: The patient is a 18 year old female who presented [with the onset of labor]. She was admitted and informed consent was obtained. Her labor course was unremarkable. She progressed to complete dilatation and began to push. She was then set up for delivery. The 's head was delivered atraumatically in the [SMITA] position. The shoulders and remainder of the 's body were then delivered without difficulty. Upon delivery, the head was held below the l evel of the perineum and the mouth and nares were bulb suctioned. The cord was doubly clamped and cut and the infant was handed off to the pediatric staff. An intact placenta with 3-vessel cord delivered via Rhett and there was found to be minimal bleeding.~ Vigorous fundal massage was performed and the fundus was found to be firm. IV oxytocin was given. Examination of the vagina and perineum revealed the midline episiotomy repaired in the usual fashion with 2-0 and 3-0 vicryl suture. Following the repair, sponge, instrument and needle counts were correct. Mom and baby were both in stable condition in the labor suite. Vitals - Labs Vital Signs - I&O Vital Signs Date Time Temp Pulse Resp B/P (MAP) Pulse Ox O2 Delivery O2 Flow Rate FiO2 05/21/19 12:00 37.0 111 20 99 Room Air Labs Laboratory Tests 05/21/19 12:40: Urine Color YELLOW, Urine Clarity CLEAR, Urine pH 8.5, Urine Specific [place] 1.025H, Urine Protein NEGATIVE, Urine Glucose (UA) NEGATIVE, Urine Ketones NEGATIVE, Urine Nitrite NEGATIVE, Urine Bilirubin NEGATIVE, Urine Urobilinogen 0.2, Urine Leukocyte Esterase NEGATIVE, Urine RBC (Auto) 3+H, Urine RBC 5-10H, Urine WBC 0-2, Urine Squamous Epithelial Cells 5-10, Urine Crystals PRESENTH, Urine Amorphous Sediment FEW ROHIT PHOSPHATEH, Urine Bacteria NEGATIVE, Urine Casts NONE, Urine Mucus SMALLH, Urine Culture Indicated NO 05/21/19 13:35: White Blood Count 12.7H, Red Blood Count 4.07L, Hemoglobin 12.4, Hematocrit 37, Mean Corpuscular Volume 91, Mean Corpuscular Hemoglobin 31, Mean Corpuscular Hemoglobin Concent 34, Red Cell Distribution Width 14.9H, Platelet Count 186, Mean Platelet Volume 10.2, Neutrophils (%) (Auto) 36L, Lymphocytes (%) (Auto) 55H, Monocytes (%) (Auto) 6, Eosinophils (%) (Auto) 1, Basophils (%) (Auto) 2, Neutrophils # (Auto) 4.6, Lymphocytes # (Auto) 7.0H, Monocytes # (Auto) 0.8, Eosinophils # (Auto) 0.1, Basophils # (Auto) 0.3H SABINO WHITEHEAD DO May 21, 2019 20:49 POS
--- NOTE | 2019-05-21 21:15 | NUR ---
ASSIST GIVEN WITH . LATCH OBTAINED.
--- NOTE | 2019-05-21 23:00 | NUR ---
LEG WEAKNESS HAS RESOLVED. PT UP TO EDGE OF BED. EPIDURAL CATH REMOVED. PT TO W/C AND TAKEN TO BATHROOM TO VOID AND COMPLETE PERICARE.
--- NOTE | 2019-05-21 23:15 | NUR ---
PT TRANSFERRED TO ROOM AT THIS TIME.
[2019-05-21] MEDS: IBUPROFEN 800 MG (MOTRIN) TAB PO SCH (23:19)
[2019-05-21] MEDS: DOCUSATE SODIUM 100 MG (COLACE) CAP PO SCH (23:20)
[2019-05-22 01:10] VITALS: BP 102/58
--- NOTE | 2019-05-22 01:35 | NUR ---
PT SENDS INFANT TO [facility] FOR THE [facility] SO SHE MAY AMBULATE. PT AND HER MOM UP AMB IN HALLS AND OFF UNIT.
--- NOTE | 2019-05-22 02:10 | NUR ---
PT HAS RETURNED TO UNIT IN STABLE CONDITION.
--- NOTE | 2019-05-22 03:15 | NUR ---
PT RESTING VERY SOUNDLY. NO S/S OF DISTRESS OR DISCOMFORT NOTED.
[2019-05-22 05:20] VITALS: BP_SYST 102; BP_SYST 89; BP_DIAS 51; BP_DIAS 58
--- NOTE | 2019-05-22 05:20 | NUR ---
VSS. PT UP TO BATHROOM. LOCHIA LIGHT WITH NO CLOTS. PT VOIDING WITHOUT DIFFICULTY. PERICARE COMPLETED. PT DENIES ANY C/O'S.
--- NOTE | 2019-05-22 05:40 | NUR ---
LAB COLLECTING AM LABS.
[2019-05-22 05:58] LABS: BASOPHILS # (AUTO) 0.1 10^3/uL (0.0-0.1); BASOPHILS % (AUTO) 1 % (0-10); EOSINOPHILS # (AUTO) 0.1 10^3/uL (0.0-0.3); EOSINOPHILS % (AUTO) 0 % (0-10); HEMATOCRIT 31 % (35-52); LYMPHOCYTES # (AUTO) 5.8 X 10^3 (1.0-4.0); LYMPHOCYTES % (AUTO) 51 % (12-44); MEAN CORPUSCULAR HEMOGLOBIN 29 PG (25-34); MEAN CORPUSCULAR HGB CONC 32 G/DL (32-36); MEAN CORPUSCULAR VOLUME 90 FL (80-99); MEAN PLATELET VOLUME 9.7 FL (7.4-10.4); MONOCYTES # (AUTO) 1.2 X 10^3 (0.0-1.0); MONOCYTES % (AUTO) 10 % (0-12); NEUTROPHILS # (AUTO) 4.2 X 10^3 (1.8-7.8); NEUTROPHILS % (AUTO) 37 % (42-75); PLATELET COUNT 171 10^3/uL (130-400); RED CELL DISTRIBUTION WIDTH 14.9 % (10.0-14.5); WHITE BLOOD COUNT 11.4 10^3/uL (4.3-11.0)
--- NOTE | 2019-05-22 06:15 | NUR ---
ANESTHESIA IN TO SEE AND EVALUATE PT.
--- NOTE | 2019-05-22 07:45 | NUR ---
DR. WHITEHEAD HERE TO SEE PT.
--- NOTE | 2019-05-22 07:58 | Progress Note ---
Standard Progress Note Progress Notes/Assess & Plan Date Seen by a Provider: May 22, 2019 Time Seen by a Provider: 07:45 Progress/Assessment & Plan Subjective: Ms. Alejandra states that her bottom is very sore, but her bleeding has slowed and she is doing fine. Objective: Vital signs are stable Heart: Regular rate and rhythm without appreciable murmur Lungs: Clear to auscultation bilaterally with good respiratory effort Abdomen: Good bowel sounds, mild fundal tenderness, fundus 4 cm below umbilicus Extremities: No cyanosis or clubbing, minimal edema of the lower extremities Assessment: PPD#1 Plan: care and pain management. If continued comfort care, I will discharge to home tomorrow. Final Diagnosis Intrauterine at 37 6/7 weeks--delivered SABINO WHITEHEAD DO May 22, 2019 07:58 POS
[2019-05-22 09:00] VITALS: BP 116/74
--- NOTE | 2019-05-22 09:00 | NUR ---
A.M. ASSESSMENT COMPLETED. VSS. SALINE LOCK OUT R/T PT WANTING TO GO DOWNSTAIRS.
--- NOTE | 2019-05-22 09:05 | NUR ---
DR. BLAKE HERE TO SEE MOM ABOUT .
[2019-05-22] MEDS: ACETAMINOPHEN 500 MG TAB (TYLENOL) PO SCH ×2 (09:13→16:12)
[2019-05-22] MEDS: PRENATAL VITAMIN 1 EA TAB PO SCH (09:14)
[2019-05-22] MEDS: DOCUSATE SODIUM 100 MG (COLACE) CAP PO SCH ×2 (09:14→21:26)
[2019-05-22] MEDS: IBUPROFEN 800 MG (MOTRIN) TAB PO SCH ×3 (09:14→21:26)
--- NOTE | 2019-05-22 09:32 | NUR ---
TDAP GIVEN IN LEFT DELTOID. SITE CLEAR.
--- NOTE | 2019-05-22 12:00 | NUR ---
CARING FOR INFANT IN ROOM. GOOD INTERACTION NOTED.
[2019-05-22 12:30] VITALS: BP 103/56
--- NOTE | 2019-05-22 14:30 | NUR ---
NO CHANGE IN STATUS. CONTINUES TO CARE FOR IN ROOM.
--- NOTE | 2019-05-22 15:08 | Anesthesia-Regional Post-Op ---
Regional Patient Condition Mental Status: Alert, Oriented x3 Circulation: Same as Pre-Op Headache: Absent Sensation: Full Recovery Motor Block: Absent Post Op Complications Complications None Follow Up Care/Instructions Patient Instructions None needed. Anesthesia/Patient Condition Patient is doing well, no complaints, stable vital signs, no apparent adverse anesthesia problems. ROSY LOMBARDI DO May 22, 2019 15:08 POS
--- NOTE | 2019-05-22 15:35 | NUR ---
PT JUST CAME UP FROM BEING OUTSIDE. RHOGAM 1 VIAL IM IN LEFT VG SITE. SITE CLEAR.
[2019-05-22 16:15] VITALS: BP 93/59
--- NOTE | 2019-05-22 16:15 | NUR ---
VSS. NO CHANGE IN STATUS.
--- NOTE | 2019-05-22 18:00 | NUR ---
CONTINUES TO CARE FOR IN ROOM. PT'S MOM HAS STAYED WITH HER ALL DAY ASSISTING WITH CARE OF .
[2019-05-22 21:25] VITALS: BP 120/72
[2019-05-23 03:30] VITALS: BP 87/57
[2019-05-23] MEDS: IBUPROFEN 800 MG (MOTRIN) TAB PO SCH ×2 (03:30→10:53)
[2019-05-23] MEDS ORDERED: OXC5T PO (05:51)
[2019-05-23] MEDS ORDERED: IBUP-1780 PO (05:51)
[2019-05-23] MEDS ORDERED: ACET-77 PO (05:51)
[2019-05-23] MEDS ORDERED: DOCU100C37 PO (05:51)
--- NOTE | 2019-05-23 05:57 | Discharge Summary ---
Diagnosis/Chief Complaint Date of Admission May 21, 2019 at 13:20 Date of Discharge May 23, 2019 Discharge Date: May 23, 2019 Discharge Time: 08:00 Admission Diagnosis Admission Diagnosis Intrauterine at 37 6/7 weeks Discharge Diagnosis Intrauterine at 37 6/7 weeks--delivered Reason Hospital Visit Ms. Alejandra is 37 6/7 weeks gestation that presented with the onset of labor Discharge Summary Hospital Course Was the Problem List Reviewed?: Yes Hospital Course Ms. Alejandra presented to the Labor & Delivery with the onset of labor. Her labor was augmented with Pitocin and I artificially ruptured her membranes. She received an Epidural for antepartum pain management. She progressed to complete and subsequently delivered a healthy viable . The remainder of her hospitalization was unremarkable. Her vital signs remained stable throughout her hospitalization. She will be discharged to home with instructions, prescriptions and a follow up appointment. Labs Laboratory Tests 05/21/19 12:40: Urine Specific [place] 1.025H, Urine RBC (Auto) 3+H, Urine RBC 5-10H, Urine Crystals PRESENTH, Urine Amorphous Sediment FEW ROHIT PHOSPHATEH, Urine Mucus SMALLH 05/21/19 13:35: White Blood Count 12.7H, Red Blood Count 4.07L, Red Cell Distribution Width 14.9H, Neutrophils (%) (Auto) 36L, Lymphocytes (%) (Auto) 55H, Lymphocytes # (Auto) 7.0H, Basophils # (Auto) 0.3H 05/22/19 05:40: White Blood Count 11.4H, Red Blood Count 3.43L, Red Cell Distribution Width 14.9H, Neutrophils (%) (Auto) 37L, Lymphocytes (%) (Auto) 51H, Lymphocytes # (Auto) 5.8H, Hemoglobin 10.0L, Hematocrit 31L, Monocytes # (Auto) 1.2H Procedures Pitocin Augmentation of Labor. Artificial Rupture of Membranes. Epidural Anesthesia. Normal Spontaneous Vaginal Delivery with Midline Episiotomy and Repair Discharge Physical Examination Allergies: Coded Allergies: No Known Drug Allergies (Unverified , 05/21/19) Vitals & I&Os Vital Signs Date Time Temp Pulse Resp B/P (MAP) Pulse Ox O2 Delivery O2 Flow Rate FiO2 05/23/19 03:30 36.6 77 18 87/57 (67) 98 Room Air General Appearance: Alert, Oriented X3, Cooperative HEENT: Atraumatic Respiratory: Clear to Auscultation Cardiovascular: Regular Rate, No Murmurs Abdominal: Normal Bowel Sounds, No Tenderness Extremities: No Clubbing, No Cyanosis Skin: No Rashes Neuro: Normal Gait, Normal Speech Discharge Home Medications Reviewed and agree with Discharge Medication list on patient's Discharge Instruction sheet Instructions to Patient/Family Please see electronic discharge instructions given to patient. Clinical Quality Measures DVT/VTE Risk/Contraindication: Risk Factor Score Per Nursin RFS Level Per Nursing on Admit: 1=Low/No VTE PPX SABINO WHITEHEAD DO May 23, 2019 05:57 POS
[2019-05-23 08:02] VITALS: BP 113/69
[2019-05-23] MEDS: PRENATAL VITAMIN 1 EA TAB PO SCH (10:53)
[2019-05-23] MEDS: DOCUSATE SODIUM 100 MG (COLACE) CAP PO SCH (10:53)
--- NOTE | 2019-05-23 11:35 | NUR ---
Discharge instructions explained, signed and copy to patient. pt verbalized understanding of instructions and denied questions. prescriptions given.
--- NOTE | 2019-05-23 13:17 | NUR ---
Discharged to home. Downstairs ambulates self accompanied by [facility] staff and to private vehicle with belongings in hand.
== END 2019-05-23 13:17 | disposition home or self-care (01) | DRG 807 ==
LOC: LDRP 12:00 → WSo 12:00 → LDRP 13:20
PROVIDERS: ADMIT Obstetrics & Gynecology; ATTEND Obstetrics & Gynecology
PROC: 10E0XZZ Delivery of Products of Conception, External Approach (ICD-10-PCS; principal; 2019-05-21)
PROC: 0W8NXZZ Division of Female Perineum, External Approach (ICD-10-PCS; 2019-05-21)
DX: O99.824 Streptococcus B carrier state complicating childbirth (principal); O99.334 Smoking (tobacco) complicating childbirth; F17.210 Nicotine dependence, cigarettes, uncomplicated; Z3A.37 37 weeks gestation of pregnancy; Z37.0 Single live birth; Z23 Encounter for immunization
CPT/HCPCS: 36415; 81000; 83033; 85025; 86850; 86900; 86901; 90715

== ENCOUNTER → 2019-10-01 | Outpatient (CLI) | payer MEDICAID ==
[~2019-10-01] MED LIST changes: +ACET-78 PO; +DOCU100C37 PO; +IBUP-1780 PO; +OXC5T PO
== END ==
LOC: LAB 15:22
PROVIDERS: ATTEND Family Medicine
DX: N92.6 Irregular menstruation, unspecified (principal)
CPT/HCPCS: 36415; 84702

== ENCOUNTER → 2021-07-22 | Outpatient (CLI) | payer SELFPAY ==
[2021-07-22 12:41] LABS: HEMATOCRIT 39 % (35-52); HEMOGLOBIN 13.1 g/dL (11.5-16.0); MEAN CORPUSCULAR HEMOGLOBIN 31 pg (25-34); MEAN CORPUSCULAR HGB CONC 34 g/dL (32-36); MEAN CORPUSCULAR VOLUME 91 fL (80-99); MEAN PLATELET VOLUME 9.2 fL (9.0-12.2); PLATELET COUNT 170 10^3/uL (130-400); WHITE BLOOD COUNT 9.2 10^3/uL (4.3-11.0)
== END ==
LOC: LAB FS 12:16
PROVIDERS: ATTEND Family Medicine
DX: Z34.91 Encounter for supervision of normal pregnancy, unspecified, first trimester (principal); Z3A.00 Weeks of gestation of pregnancy not specified; Z86.39 Personal history of other endocrine, nutritional and metabolic disease
CPT/HCPCS: 36415; 84144; 84443; 85027; 86703; 86762; 86780; 86850; 86900; 86901; 87088; 87340

== ENCOUNTER → 2021-10-15 | Outpatient (CLI) | payer MEDICAID ==
--- NOTE | 2021-10-15 17:47 | Diagnostic Imaging Report ---
INDICATION: anatomy survey TECHNIQUE: Multiple real-time grayscale images were obtained over the gravid uterus. COMPARISON: None FINDINGS: The cervix measures 5.7 cm in length. Fetus is in cephalic presentation. Placenta is fundally positioned and there are no features of previa. The amount of amniotic fluid appears visually appropriate. anatomy survey is performed and the following structures are visualized and normal: Four-chamber heart, stomach, kidneys, umbilical cord insertion, urinary bladder, three-vessel cord, cerebellum, cisterna magna, cerebral ventricles, spine, lips/nose, profile and all 4 extremities. Biometrical measurements are as follows: Biparietal 4.80 cm, age 20 weeks 4 days. Head circumference 18.31 cm, age 20 weeks 5 days. Abdominal circumference 15.70 cm, age 20 weeks 6 days. Femur length 3.29 cm, age 20 weeks 2 days. Sonographic estimate age: 20 weeks 5 days. Sonographic estimated date of delivery: 02/27/2022. Estimated Weight: 364 gm (+/- 54 gm). LMP percentile: 39%. heart rate: 139 beats per minute. number: 1 of 1. IMPRESSION: Single live intrauterine with normal anatomy survey. Dictated by: Dictated on workstation # [id number]
== END ==
LOC: RAD FS 14:51
PROVIDERS: ATTEND Family Medicine
DX: Z34.92 Encounter for supervision of normal pregnancy, unspecified, second trimester (principal); Z3A.20 20 weeks gestation of pregnancy
CPT/HCPCS: 76805

== ENCOUNTER → 2021-11-04 | Outpatient (CLI) | payer MEDICAID ==
--- NOTE | 2021-11-04 16:45 | Diagnostic Imaging Report ---
INDICATION: Acute cough PA and lateral views of the chest are obtained. COMPARISON: None Overall heart size and pulmonary vascularity are within normal limits for size. There is no evidence of pneumothorax or consolidation. No significant pleural fluid is identified. Partial obscuration left heart border may be related to lingular atelectasis or scarring. IMPRESSION: May be mild lingular atelectasis. Otherwise, no acute abnormalities identified. Dictated by: Dictated on workstation # [id number]
== END ==
LOC: RAD FS 15:28
PROVIDERS: ATTEND Registered Nurse Emergency
DX: R05.1 Acute cough (principal)
CPT/HCPCS: 71046

== ENCOUNTER → 2021-12-08 | Outpatient (CLI) | payer MEDICAID ==
[2021-12-08 12:23] LABS: HEMATOCRIT 31 % (35-52); HEMOGLOBIN 10.6 g/dL (11.5-16.0); MEAN CORPUSCULAR HEMOGLOBIN 32 pg (25-34); MEAN CORPUSCULAR HGB CONC 35 g/dL (32-36); MEAN CORPUSCULAR VOLUME 93 fL (80-99); MEAN PLATELET VOLUME 9.4 fL (9.0-12.2); PLATELET COUNT 201 10^3/uL (130-400); WHITE BLOOD COUNT 9.9 10^3/uL (4.3-11.0)
== END ==
LOC: LAB FS 11:17
PROVIDERS: ATTEND Family Medicine
DX: Z34.93 Encounter for supervision of normal pregnancy, unspecified, third trimester (principal); Z3A.28 28 weeks gestation of pregnancy
CPT/HCPCS: 36415; 82950; 85027; 86780; 86850

== ENCOUNTER → 2022-01-06 | Outpatient (CLI) | payer MEDICAID | LOC: LABNPT 15:18 | PROVIDERS: ATTEND Family Medicine | DX: Z01.89 Encounter for other specified special examinations (principal) | CPT/HCPCS: 87088 ==

== ENCOUNTER 2022-01-28 13:55 | Outpatient (CLI) | payer MEDICAID ==
[~2022-01-28] VITALS: Ht 165.1 cm; Wt 82.8 kg
[2022-01-28] MEDS ORDERED: PNV1TABL9 PO (14:09)
[2022-01-28 14:10] VITALS: BP 106/70
[2022-01-28] MEDS ORDERED: PROM25TA14 PO (14:10)
[2022-01-28 14:12] LABS: BILIRUBIN,URINE NEGATIVE (NEGATIVE); CLARITY,URINE CLEAR; COLOR,URINE YELLOW; GLUCOSE, URINE (UA) NEGATIVE (NEGATIVE); KETONES,URINE NEGATIVE (NEGATIVE); LEUKOCYTE ESTERASE ,URINE 2+ (NEGATIVE); NITRITE,URINE NEGATIVE (NEGATIVE); PROTEIN,URINE NEGATIVE (NEGATIVE)
[2022-01-28 14:13] VITALS: BP 106/70
[2022-01-28 14:43] LABS: BACTERIA,URINE NEGATIVE /HPF; WBC,URINE 0-2 /HPF
[2022-01-28] MEDS ORDERED: ACETAMINOPHEN 500 MG TAB (TYLENOL) PO ONE (15:00)
--- NOTE | 2022-01-29 08:10 | Physician Query-Final Dx ---
,01/29/22 0810: Clinic Account Progress/Dx Physician Query: Please give diagnosis Please include # weeks gestation Date of Service Jan 28, 2022 at 13:55 NANETTE CONTRERAS MD 01/29/22 1330: Clinic Account Progress/Dx Physician Query: Date of Service 01/28/2022 DIAGNOSIS: Diagnosis Intrauterine at 35w1d gestation Abdominal pain Progress Note: Per RN report, patient presented for contractions.She tried Tylenol at home without improvement. Pain was mild. She reported feeling good movements. She denied any vaginal bleeding or loss of fluid per vagina. SVE closed. FHT is reactive. Rare contractions were noted on toco. Patient desired discharge home with supportive management including Tylenol, hydration. Return precautions provided. MADIE,JunJan 29, 2022 08:10 NANETTE CONTRERAS MD Jan 29, 2022 13:30
== END 2022-01-28 15:15 | disposition home or self-care (01) ==
LOC: LDRP 13:55 → WSo 13:55
PROVIDERS: ATTEND Obstetrics & Gynecology
DX: O26.893 Other specified pregnancy related conditions, third trimester (principal); R10.9 Unspecified abdominal pain; Z3A.35 35 weeks gestation of pregnancy
CPT/HCPCS: 81000; 87088; 99213

== ENCOUNTER → 2022-02-02 | Outpatient (CLI) | payer MEDICAID ==
[~2022-02-02] MED LIST changes: +PNV1TABL9 PO; +PROM25TA14 PO
== END ==
LOC: LABNPT 11:30
PROVIDERS: ATTEND Family Medicine
DX: Z34.93 Encounter for supervision of normal pregnancy, unspecified, third trimester (principal); Z3A.00 Weeks of gestation of pregnancy not specified
CPT/HCPCS: 87081